=== PATIENT | male | born 1965 | race Caucasian/White ===

== ENCOUNTER 2016-07-05 13:38 | Emergency (ER) | payer MEDICARE, OTHER, SELFPAY ==
[~2016-07-05] VITALS: Ht 180.3 cm; Wt 127.0 kg
[2016-07-05] MEDS ORDERED: AMIT50TA (13:51)
[2016-07-05] MEDS ORDERED: BUSP10TA (13:51)
[2016-07-05] MEDS ORDERED: PROA1AER (13:51)
[2016-07-05] MEDS ORDERED: VICO5TAB16 (13:51)
[2016-07-05] MEDS ORDERED: ATOR1TAB18 (13:51)
[2016-07-05] MEDS ORDERED: LISI40TAB (13:51)
[2016-07-05] MEDS ORDERED: TYLE500T78 PO (13:54)
[2016-07-05 15:14] LABS: BASO % 0.3 % (0.0-1.0); EOS # 0.2 K/mm3 (0.0-0.50); LARGE UNSTAINED CELL # 0.1 K/mm3 (0.0-0.4); LARGE UNSTAINED CELL % 0.9 % (0.0-4.0); LYMPH # 1.7 K/mm3 (1.5-4.5); LYMPH % 13.9 % (24.0-44.0); MEAN CORPUSCULAR HGB CONC 33.2 g/dl (32.0-36.5); MEAN CORPUSCULAR VOLUME 90.5 fl (80.0-96.0); MONO # 0.6 K/mm3 (0.0-0.8); MONO % 4.8 % (0.0-5.0); NEUTROPHILS # 9.3 K/mm3 (1.8-7.7); PLATELET COUNT, AUTOMATED 334 k/mm3 (150-450); RED CELL DISTRIBUTION WIDTH 12.8 % (11.5-14.5); WHITE BLOOD COUNT 11.9 K/mm3 (4.0-10.0)
[2016-07-05 15:19] LABS: ANION GAP 8 MEQ/L (8-16); BLOOD UREA NITROGEN 10 MG/DL (7-18); CARBON DIOXIDE LEVEL 26 MEQ/L (21-32); CHLORIDE LEVEL 102 MEQ/L (98-107); CREATININE FOR GFR 0.79 MG/DL (0.70-1.30); GLOMERULAR FILTRATION RATE > 60.0 (>56); GLUCOSE, FASTING 96 MG/DL (70-105); POTASSIUM SERUM 4.3 MEQ/L (3.5-5.1); SODIUM LEVEL 136 MEQ/L (136-145)
[2016-07-05] MEDS ORDERED: amLODIPine 5 MG TAB PO ONE (16:45)
[2016-07-05] MEDS ORDERED: ALBUTEROL SULFATE 2.5 MG/0.5 ML INH NEB SOLN NEB ONE (16:45)
--- NOTE | 2016-07-05 16:57 | REP ---
Noncontrast brain CT: History: Dizziness and blurred vision. Comparison brain CT study is from 12/25/2013. Findings: Bone window settings demonstrate an intact bony calvarium. There is a small amount of fluid with an air-fluid level in the apex of the left maxillary sinus. This finding was present in November 2013 as well. Visualized paranasal sinuses are otherwise clear. There is a 3 cm radiolucency in the floor the middle cranial fossa on the left consistent with a small subarachnoid cyst. This is unchanged from the prior study. There is mild diffuse cerebral atrophy as before. There is no evidence of intracranial hemorrhage. No infarct, mass, extra-axial fluid collection or midline shift is seen. [place] white differentiation pattern is intact. Impression: Stable 3 cm subarachnoid cyst in the floor of the left middle cranial fossa. Minimal diffuse atrophy. Otherwise negative. Signed by Ebenezer Hwang MD 07/05/2016 06:02 P
[2016-07-05 17:30] VITALS: BP 142/79
[2016-07-05] MEDS ORDERED: NIFEdipine 10 MG CAP PO ONE (18:30)
--- NOTE | 2016-07-05 18:56 | REP ---
Chest x-ray: Two views: History: Wheezing. Findings: A dorsal column stimulator is seen in the mid thoracic spine as before. The patient is status post ventral discectomy and fusion in the lower cervical spine. EKG monitoring electrodes overlie the chest. The lungs are well inflated and clear. Heart size is normal. Pulmonary vasculature is not increased. No significant bony abnormality is seen. Impression: No active disease. Signed by Ebenezer Hwang MD 07/05/2016 08:46 P
[2016-07-05 19:44] LABS: METHADONE URINE NEGATIVE (NEGATIVE)
[2016-07-05] MEDS ORDERED: AMLO25TA PO (20:47)
[2016-07-05] MEDS ORDERED: traMADol 50 MG TAB PO ONE (21:00)
[2016-07-05 21:29] VITALS: BP 150/87
== END 2016-07-05 21:30 | disposition home or self-care (01) ==
LOC: M ED 14:45
DX: R55 Syncope and collapse (principal); I10 Essential (primary) hypertension; R06.02 Shortness of breath; F17.210 Nicotine dependence, cigarettes, uncomplicated; Z79.899 Other long term (current) drug therapy

== ENCOUNTER → 2017-08-20 | Outpatient (REF) | payer MEDICARE, OTHER, MEDICAID ==
[2017-08-23 00:06] LABS: AMPHETAMINE SCREEN, URINE Negative ng/mL (Cutoff=1000); BARBITURATES SCREEN, URINE Negative ng/mL (Cutoff=200); BENZODIAZEPINES, URINE SCREEN Negative ng/mL (Cutoff=200); CANNABINOID SCREEN, URINE Negative ng/mL (Cutoff=20); COCAINE SCREEN, URINE Negative ng/mL (Cutoff=300); CREATININE, URINE 65.4 mg/dL (20.0-300.0); FENTANYL URINE SCREEN Negative pg/mL (Cutoff=2000); METHADONE, URINE SCREEN Negative ng/mL (Cutoff=300); OPIATE SCREEN, URINE Negative ng/mL (Cutoff=300); OXYCODONE, SCREEN, URINE Negative ng/mL (Cutoff=100); PCP SCREEN, URINE Negative ng/mL (Cutoff=25); SPECIFIC GRAVITY, URINE 1.008 (.); pH, URINE 5.4 (4.5-8.9)
== END ==
LOC: M SFHCPLAZ 15:49
DX: Z51.81 Encounter for therapeutic drug level monitoring (principal); Z79.891 Long term (current) use of opiate analgesic
CPT/HCPCS: 80307

== ENCOUNTER → 2018-02-12 | Outpatient (CLI) | payer OTHER, MEDICARE, MEDICAID ==
[~2018-02-12] MED LIST: AMIT50TA; AMLO25TA PO; ATOR80TA59; BUSP10TA; LISI40TA; PROAAER10; TYLE500T78 PO; VICO5TAB16
--- NOTE | 2018-02-12 11:52 | REP ---
CT CERVICAL SPINE WITHOUT CONTRAST: HISTORY: Radiculopathy. COMPARISON: 12/26/2011. The patient is status post C6-7 anterior spinal fusion. A fixation plate and bone graft material are present. Disc bulges are present at the C3-4 through C5-6 levels. There is minimal narrowing of the spinal canal. Uncinate process and/or facet hypertrophy are present at the C2-3 through C7-T1 levels. These findings produce minimal to moderate narrowing of the neural foramina. The C7-T1 intervertebral disc is decreased in height consistent with disc degeneration. There is no subluxation. IMPRESSION: 1. The patient is status post C6-7 anterior spinal fusion. There is anatomic alignment. 2. There is cervical spondylosis at the C2-3 through C7-T1 levels. The postoperative change is a new finding. Electronically Signed by Clifton Nobles MD 02/12/2018 12:09 P
--- NOTE | 2018-02-12 12:19 | REP ---
CT LUMBAR SPINE WITHOUT CONTRAST: HISTORY: Radiculopathy. COMPARISON: MR 04/22/2012. A diffuse disc bulge is present at the L1-2 level. The previously noted small disc protrusion is not seen. There is minimal compression of the thecal sac. The L1 nerves exit the neural foramina without compression. A diffuse disc bulge is present at the L2-3 level. There is minimal compression of the thecal sac. The L2 nerves exit the neural foramina without compression. A diffuse disc bulge is present at the L3-4 level. There is minimal compression of the thecal sac. There is hypertrophy of the posterior articulating facets. There is compression of the left L3 nerve in the neural foramen. The right L3 nerve exits the neural foramen without compression. A diffuse disc bulge is present at the L4-5 level. There is minimal compression of the thecal sac. There is hypertrophy of the posterior articulating facets. There is compression of the L4 nerves in the neural foramina. A diffuse disc bulge and small left paracentral disc protrusion are present at the L5-S1 level. There is minimal compression of the thecal sac and left S1 nerve as it exits the thecal sac. There is hypertrophy of the posterior articulating facets. There is compression of the left L5 nerve in the neural foramen. The right L5 nerve exits the neural foramen without compression. The lumbar intervertebral discs are decreased in height. Vacuum phenomenon is present at the L5-S1 level. These findings are consistent with disc degeneration. There is no subluxation. IMPRESSION: 1. Diffuse disc bulges at the L1-2 through L4-5 levels with minimal thecal sac compression. There is compression of the L4 and left L3 nerves in the neural foramina. The previously noted disc protrusion at the L1-2 level is not seen. 2. Diffuse disc bulge and small left paracentral disc protrusion at the L5-S1 level with minimal compression of the thecal sac and left S1 nerve as it exits the thecal sac. There is compression of the left L5 nerve in the neural foramen. There is no other significant change. Electronically Signed by Clifton Nobles MD 02/12/2018 12:27 P
== END ==
LOC: M RAD 10:31
PROVIDERS: ATTEND Nurse Practitioner Family
DX: M50.20 Other cervical disc displacement, unspecified cervical region (principal); M51.26 Other intervertebral disc displacement, lumbar region; M51.27 Other intervertebral disc displacement, lumbosacral region; M54.16 Radiculopathy, lumbar region; M54.12 Radiculopathy, cervical region; Z98.1 Arthrodesis status

== ENCOUNTER 2018-08-21 07:05 | Emergency (ER) | payer MEDICARE, MEDICAID ==
[~2018-08-21] VITALS: Ht 182.9 cm; Wt 118.2 kg
[~2018-08-21 07:05] MED LIST changes: -VICO5TAB16; +VICO5TAB17
[2018-08-21 07:40] LABS: BASO % 0.4 % (0.0-1.0); EOS # 0.2 10^3/uL (0.0-0.50); EOS % 2.1 % (0.0-3.0); HEMATOCRIT 46.1 % (42.0-52.0); HEMOGLOBIN 15.4 g/dl (13.5-17.5); LYMPH # 2.4 10^3/uL (1.5-4.5); LYMPH % 26.6 % (24.0-44.0); MEAN CORPUSCULAR HEMOGLOBIN 30.6 pg (27.0-33.0); MEAN CORPUSCULAR HGB CONC 33.4 g/dl (32.0-36.5); MEAN CORPUSCULAR VOLUME 91.7 fl (80.0-96.0); MONO # 0.9 10^3/uL (0.0-0.8); MONO % 10.1 % (0.0-5.0); NEUTROPHILS # 5.4 10^3/uL (1.8-7.7); NEUTROPHILS % 59.9 % (36.0-66.0); PLATELET COUNT, AUTOMATED 329 10^3/uL (150-450); RED BLOOD COUNT 5.03 10^6/uL (4.30-6.10)
[2018-08-21] MEDS ORDERED: KETOROLAC 30 MG/ML VIAL (J1885) IV ONE (07:45)
[2018-08-21 07:50] LABS: INR 0.97; PROTHROMBIN TIME 12.6 SECONDS (11.8-14.0)
--- NOTE | 2018-08-21 07:50 | REP ---
Clinical: Acute chest pain . Comparison: 07/05/2016 . Findings: The mediastinum and cardiac silhouette are stable and within normal limits for portable technique. The lung garcia are clear without acute consolidation, effusion, or pneumothorax. Skeletal structures are intact. Impression: No acute cardiopulmonary process appreciated. Electronically Signed by Armen Hernandez MD 08/21/2018 07:42 A
[2018-08-21 08:11] LABS: ALBUMIN 4.1 GM/DL (3.2-5.2); ALT/SGPT 22 U/L (12-78); BILIRUBIN,DIRECT < 0.1 MG/DL (0.0-0.2); BILIRUBIN,TOTAL 0.2 MG/DL (0.2-1.0); BLOOD UREA NITROGEN 10 MG/DL (7-18); CALCIUM LEVEL 8.9 MG/DL (8.5-10.1); CARBON DIOXIDE LEVEL 19 MEQ/L (21-32); CHLORIDE LEVEL 110 MEQ/L (98-107); CK-MB VALUE MASS < 1.0 NG/ML (<3.6); CPK CREATINE PHOSPHOKINASE 71 U/L (39-308); CREATININE FOR GFR 1.05 MG/DL (0.70-1.30); GLOMERULAR FILTRATION RATE > 60.0 (>56); GLUCOSE, FASTING 93 MG/DL (70-100); LIPASE 146 U/L (73-393); MB/CK RELATIVE INDEX 1.41 (< OR =4); NT-PRO BNP 11 PG/ML (<125); POTASSIUM SERUM 4.2 MEQ/L (3.5-5.1); SODIUM LEVEL 138 MEQ/L (136-145); TOTAL PROTEIN 7.8 GM/DL (6.4-8.2); TROPONIN I < 0.02 NG/ML (< 0.10)
[2018-08-21] MEDS ORDERED: ISOVUE-370 76% 100ML VIAL (Q9967) As Ordered ONE (08:45)
[2018-08-21] MEDS ORDERED: GABAPENTIN 300 MG CAP PO ONE (09:00)
--- NOTE | 2018-08-21 09:27 | REP ---
Clinical: Right upper extremity pain and swelling. Technique: Real time garner scale and color Doppler ultrasound examination using linear high frequency transducer. Findings: Ultrasound examination of the right upper extremity including jugular, subclavian, axillary, basilic, brachial, and cephalic veins demonstrate normal flow characteristics without evidence for deep venous thrombosis. Impression: Negative examination. No DVT. Electronically Signed by Armen Hernandez MD 08/21/2018 09:17 A
--- NOTE | 2018-08-21 11:03 | REP ---
CT of the chest with IV contrast, CT pulmonary angiography protocol: Comparison is 12/26/2011. There are no emboli in the pulmonary trunk or central pulmonary arteries: There are no emboli in the pulmonary lobe or segment branches. There are no infiltrates. There are no pleural effusions. There are no masses or nodules. The thoracic aorta is unremarkable. Cardiac size is normal. There is no pericardial effusion. The visualized upper abdominal contents are unremarkable. There is a spinal stimulator at the mid thoracic level. Impression: There are no pulmonary emboli. Spinal stimulator. Otherwise, negative chest CT. Electronically Signed by Valeriy Salinas MD 08/21/2018 10:54 A
[2018-08-21] MEDS ORDERED: NEUR300C PO (12:21)
[2018-08-21 12:41] VITALS: BP 138/96
--- NOTE | 2018-08-21 20:03 | ECGEPIP ---
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
== END 2018-08-21 12:53 | disposition home or self-care (01) ==
LOC: M ED 07:05
DX: R07.9 Chest pain, unspecified (principal); M79.601 Pain in right arm; R20.2 Paresthesia of skin; I10 Essential (primary) hypertension; J44.9 Chronic obstructive pulmonary disease, unspecified; E78.5 Hyperlipidemia, unspecified; F41.9 Anxiety disorder, unspecified; G89.29 Other chronic pain; Z79.899 Other long term (current) drug therapy; F17.210 Nicotine dependence, cigarettes, uncomplicated
CPT/HCPCS: 71045; 71275; 80048; 80076; 82550; 82553; 83690; 83880; 84443; 84484; 85025; 85379; 85610; 93005; 93041; 93971; 94760; 96374; 99285; J1885; Q9967

== ENCOUNTER → 2018-09-04 | Outpatient (CLI) | payer MEDICARE, MEDICAID ==
[~2018-09-04] MED LIST changes: +NEUR300C PO
--- NOTE | 2018-09-04 16:58 | REP ---
CT cervical spine without contrast: History: Cervical radiculopathy. Comparison study 02/12/2018. Technique: Helical scanning is acquired and 2 mm axial images are reformatted. Coronal and sagittal MPR images are generated and reviewed. CT findings: The patient is status post anterior cervical discectomy and fusion of the C6-7 disc. There is straightening of the normal cervical lordosis. Alignment is otherwise normal. There is good bony fusion C6-7 disc. Abutting osteophytes are noted as before at C5-6 anteriorly. Discogenic spurring is seen anteriorly at C4-5 and to a slight degree of C3-4 as well. There is osteoarthritis at the articulation between the dens and the anterior arch of C1 unchanged. There is fairly advanced osteoarthritic facet disease at C2-3, C3-4, C4-5 and C5-6 bilaterally but much worse on the right than the left. The most extensive sclerosis and hypertrophy is noted affecting the right C3-4 facet joint. This facet osteoarthritis appears a bit more prominent today. At the C2-3 disc level minimal central disc bulging is present. At C3-4, axial and sagittal images demonstrate significant neural foraminal narrowing on the right due to uncovertebral spurring and facet hypertrophy. There is minimal facet spurring on the left. Mild diffuse disc bulging is seen. At C4-5, there is mild uncovertebral spurring bilaterally but neural foramina appear adequate. Left is a little more narrow than right. At C5-6, no neural foraminal narrowing is seen. No disc protrusion is noted. At the C6-7 level, the disc is fused. No thecal sac compression is appreciated. At C7-T1, there is no significant finding. Impression: Advanced osteoarthritic facet disease most pronounced on the right at C3-4 with some progression since the January 2018 prior study. There is bilateral neural foraminal narrowing at C3-4 right greater than left. Mild uncovertebral spurring is seen at 4-5 unchanged. The patient is status post discectomy and fusion plating at C6-7. Electronically Signed by Ebenezer Hwang MD 09/04/2018 05:15 P
== END ==
LOC: M RAD 15:21
PROVIDERS: ATTEND Nurse Practitioner Family
DX: Z98.1 Arthrodesis status (principal); M25.78 Osteophyte, vertebrae; M50.31 Other cervical disc degeneration, high cervical region

== ENCOUNTER → 2019-07-02 | Outpatient (CLI) | payer MEDICARE, MEDICAID ==
--- NOTE | 2019-07-02 12:13 | REP ---
RIGHT KNEE: Five views. HISTORY: Right knee injury. Pain. FINDINGS: Five views of the right knee demonstrate normal bones, joints, and soft tissues. No fracture, subluxation, or joint effusion is evident. IMPRESSION: Negative radiographs of the right knee. Electronically Signed by Ebenezer Hwang MD 07/02/2019 01:30 P
--- NOTE | 2019-07-02 12:14 | REP ---
RIGHT FOREARM: Two views. HISTORY: Injury. Pain. FINDINGS: AP and lateral views of the right forearm demonstrate soft-tissue swelling dorsally over the proximal ulna. There is olecranon process spurring and there is medial and lateral epicondylar spurring. There is no evidence of fracture or acute bony abnormality. IMPRESSION: No fracture seen. Spurring noted at the elbow. Soft tissue swelling. Electronically Signed by Ebenezer Hwang MD 07/02/2019 01:30 P
== END ==
LOC: M WUC 11:21
PROVIDERS: ATTEND Physician Assistant
DX: S50.11XA Contusion of right forearm, initial encounter (principal); S80.01XA Contusion of right knee, initial encounter; X58.XXXA Exposure to other specified factors, initial encounter; Y92.89 Other specified places as the place of occurrence of the external cause; Y93.9 Activity, unspecified; Y99.9 Unspecified external cause status

== ENCOUNTER 2019-09-11 10:37 | Emergency (ER) | payer MEDICARE, MEDICAID ==
[2019-09-11 11:38] LABS: VENOUS BASE EXCESS -2.1 (-2.0-2.0); VENOUS HCO3 22.6 MEQ/L (23.0-27.0); VENOUS O2 SATURATION 98.6 % (60.0-80.0); VENOUS PARTIAL PRESSURE CO2 38.7 mmHg (38.0-50.0); VENOUS PARTIAL PRESSURE O2 138.4 mmHg (30.0-50.0); VENOUS PH 7.384 UNITS (7.330-7.430); VENOUS STANDARD HCO3 22.7 MEQ/L; VENOUS TOTAL CO2 23.8 MEQ/L (24.0-28.0)
[2019-09-11 11:45] LABS: BASO % 0.3 % (0.0-1.0); EOS # 0.1 10^3/uL (0.0-0.5); EOS % 1.4 % (0.0-3.0); HEMATOCRIT 43.4 % (42.0-52.0); HEMOGLOBIN 14.5 g/dl (13.5-17.5); LYMPH # 2.5 10^3/uL (1.5-5.0); LYMPH % 26.1 % (24.0-44.0); MEAN CORPUSCULAR HEMOGLOBIN 29.8 pg (27.0-33.0); MEAN CORPUSCULAR HGB CONC 33.4 g/dl (32.0-36.5); MEAN CORPUSCULAR VOLUME 89.1 fl (80.0-96.0); MONO # 0.8 10^3/uL (0.0-0.8); MONO % 8.2 % (0.0-5.0); NEUTROPHILS # 6.1 10^3/uL (1.5-8.5); NEUTROPHILS % 63.5 % (36.0-66.0); PLATELET COUNT, AUTOMATED 341 10^3/uL (150-450); RED BLOOD COUNT 4.87 10^6/uL (4.30-6.10); WHITE BLOOD COUNT 9.7 10^3/uL (4.0-10.0)
[2019-09-11] MEDS ORDERED: ALTEPLASE RECOMBINANT 81 MG in IV 1 EA IV ONE (11:45)
[2019-09-11] MEDS ORDERED: ALTEPLASE 100MG VIAL IV ONE (11:45)
[2019-09-11] MEDS ORDERED: ISOVUE-370 76% 100ML VIAL As Ordered ONE (11:48)
--- NOTE | 2019-09-11 11:48 | REP ---
REASON: Altered mental status. COMPARISON: 07/05/2016 There is no significant change from the prior examination. No acute intracranial hemorrhagic or nonhemorrhagic event has developed. There is no shift of the midline structures. There are no extra-axial fluid collections. The left middle cranial fossa arachnoid cyst is unchanged. There is no change in the deep cerebral white matter. There is no change in the posterior fossa. The imaged paranasal sinuses again show chronic left maxillary sinus changes, status quo. IMPRESSION: No significant change from the prior exam with findings as described above. There is no evidence of acute disease. Electronically Signed by Byron Crum DO 09/11/2019 04:59 P
[2019-09-11 12:18] LABS: ALBUMIN 4.1 GM/DL (3.2-5.2); ALT/SGPT 28 U/L (12-78); BILIRUBIN,DIRECT 0.1 MG/DL (0.0-0.2); BILIRUBIN,TOTAL 0.4 MG/DL (0.2-1.0); BLOOD UREA NITROGEN 15 MG/DL (7-18); CALCIUM LEVEL 8.9 MG/DL (8.5-10.1); CARBON DIOXIDE LEVEL 25 MEQ/L (21-32); CHLORIDE LEVEL 106 MEQ/L (98-107); CREATININE FOR GFR 0.76 MG/DL (0.70-1.30); GLOMERULAR FILTRATION RATE > 60.0 (>56); GLUCOSE, FASTING 112 MG/DL (70-100); POTASSIUM SERUM 4.2 MEQ/L (3.5-5.1); SODIUM LEVEL 138 MEQ/L (136-145); TOTAL PROTEIN 7.2 GM/DL (6.4-8.2)
[2019-09-11] MEDS ORDERED: GABA600T4 (12:42)
[2019-09-11] MEDS ORDERED: SODIUM CHLORIDE 0.9% 50 ML IV ONE (12:45)
--- NOTE | 2019-09-11 12:48 | REPVR ---
PROCEDURE INFORMATION: Exam: CT Angiography Head With Contrast Exam date and time: 09/11/2019 11:45 AM Age: 53 years old Clinical indication: Vertigo TECHNIQUE: Imaging protocol: Computed tomography angiography of the head with intravenous contrast. 3D rendering: MIP and/or 3D reconstructed images were created by the technologist. Radiation optimization: All CT scans at this facility use at least one of these dose optimization techniques: automated exposure control; mA and/or kV adjustment per patient size (includes targeted exams where dose is matched to clinical indication); or iterative reconstruction. Contrast material: ISOVUE 370; Contrast volume: 100 ml; Contrast route: INTRAVENOUS (IV); COMPARISON: CT Head without contrast 09/11/2019 10:56 AM FINDINGS: Anterior cerebral arteries: No occlusion or significant stenosis. No aneurysm. Right internal carotid artery: Intracranial segment is patent with no significant stenosis or occlusion. No aneurysm. Right middle cerebral artery: No occlusion or significant stenosis. No aneurysm. Right posterior cerebral artery: No occlusion or significant stenosis. No aneurysm. Right vertebral artery: No occlusion or significant stenosis. No aneurysm. Left internal carotid artery: Intracranial segment is patent with no significant stenosis or occlusion. No aneurysm. Left middle cerebral artery: No occlusion or significant stenosis. No aneurysm. Left posterior cerebral artery: No occlusion or significant stenosis. No aneurysm. Left vertebral artery: No occlusion or significant stenosis. No aneurysm. Basilar artery: No occlusion or significant stenosis. No aneurysm. IMPRESSION: No large vessel stenosis or occlusion. Electronically signed by: Natalie Edmondson On 09/11/2019 12:48:36 PM
--- NOTE | 2019-09-11 12:52 | REPVR ---
PROCEDURE INFORMATION: Exam: CT Angiography Neck With Contrast Exam date and time: 09/11/2019 11:45 AM Age: 53 years old Clinical indication: Vertigo TECHNIQUE: Imaging protocol: Computed tomography angiography of the neck with intravenous contrast. 3D rendering: MIP and/or 3D reconstructed images were created by the technologist. Radiation optimization: All CT scans at this facility use at least one of these dose optimization techniques: automated exposure control; mA and/or kV adjustment per patient size (includes targeted exams where dose is matched to clinical indication); or iterative reconstruction. Contrast material: ISOVUE 370; Contrast volume: 100 ml; Contrast route: INTRAVENOUS (IV); COMPARISON: CT Spine,cervical w/o contrast 09/04/2018 3:30 PM FINDINGS: Right common carotid artery: No stenosis. No dissection or occlusion. Right internal carotid artery: There are coarse calcific atherosclerotic changes of the right carotid bulb. There is no significant stenosis. Right external carotid artery: No occlusion or stenosis of the origin. Right vertebral artery: No stenosis. No dissection or occlusion. Left common carotid artery: No stenosis. No dissection or occlusion. Left internal carotid artery: There are coarse calcific atherosclerotic changes of the left carotid bulb and proximal internal carotid artery. There is 60% stenosis of the left proximal internal carotid artery. Left external carotid artery: No occlusion or stenosis of the origin. Left vertebral artery: No stenosis. No dissection or occlusion. Bones/joints: Ventral fixation plate and screws are noted at C6 and C7. There is straightening of the normal cervical lordosis. There is no fracture or listhesis. Soft tissues: Normal. No significant soft tissue swelling. IMPRESSION: 60% stenosis of the left proximal internal carotid artery. REFERENCES: NASCET CRITERIA. The degree of internal carotid artery stenosis is based on NASCET criteria. Normal is no stenosis. Mild is less than 50% stenosis. Moderate is 50-69% stenosis. Severe is 70% to 99% stenosis. Total occlusion is no detectable patent lumen. Electronically signed by: Natalie Edmondson On 09/11/2019 12:52:48 PM
[2019-09-11 13:01] VITALS: BP 120/61
--- NOTE | 2019-09-12 09:26 | ECGEPIP ---
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
== END 2019-09-11 13:05 | disposition short-term general hospital (02) ==
LOC: M ED 10:37
DX: R42 Dizziness and giddiness (principal); I65.22 Occlusion and stenosis of left carotid artery; I45.89 Other specified conduction disorders; I10 Essential (primary) hypertension; Z72.0 Tobacco use
CPT/HCPCS: 70450; 70496; 70498; 80047; 80048; 80076; 82140; 82803; 84443; 84484; 85025; 93005; 93041; 96365; 96375; 99285; J2997; Q9967

== ENCOUNTER 2020-05-25 18:44 | Emergency (ER) | payer MEDICARE, MEDICAID ==
[~2020-05-25] VITALS: Ht 182.9 cm; Wt 124.2 kg
[~2020-05-25 18:44] MED LIST changes: +GABA600T4; -LISI40TA; +LISI40TA4
[2020-05-25] MEDS ORDERED: IBUP80TA (18:54)
[2020-05-25] MEDS ORDERED: BACL10TA2 (18:54)
[2020-05-25] MEDS ORDERED: HYDR-3719 (18:54)
[2020-05-25] MEDS ORDERED: NS 1,000 ML IV ONE (19:45)
[2020-05-25] MEDS ORDERED: MORPHINE 4 MG/ML 1ML VIAL/SYRINGE (J2270) IV ONE (19:45)
[2020-05-25 21:30] LABS: BASO # 0.1 10^3/uL (0.0-0.2); BASO % 0.6 % (0.0-1.0); EOS # 0.2 10^3/uL (0.0-0.5); EOS % 1.9 % (0.0-3.0); HEMATOCRIT 44.9 % (42.0-52.0); HEMOGLOBIN 14.8 g/dl (13.5-17.5); LYMPH % 34.5 % (24.0-44.0); MEAN CORPUSCULAR VOLUME 90.9 fl (80.0-96.0); MONO % 8.4 % (2.0-8.0); NEUTROPHILS # 6.2 10^3/uL (1.5-8.5); PLATELET COUNT, AUTOMATED 315 10^3/uL (150-450); RED BLOOD COUNT 4.94 10^6/uL (4.30-6.10); WHITE BLOOD COUNT 11.5 10^3/uL (4.0-10.0)
[2020-05-25 21:41] LABS: INR 0.91; PROTHROMBIN TIME 12.4 SECONDS (12.5-14.3)
[2020-05-25 21:42] LABS: PARTIAL THROMBOPLASTIN TIME 29.8 SECONDS (24.2-38.5)
[2020-05-25] MEDS ORDERED: ISOVUE-370 76% 100ML VIAL As Ordered ONE (21:54)
[2020-05-25 21:58] LABS: ALBUMIN 4.3 GM/DL (3.2-5.2); ALT/SGPT 23 U/L (12-78); BILIRUBIN,DIRECT < 0.1 MG/DL (0.0-0.2); BILIRUBIN,TOTAL 0.2 MG/DL (0.2-1.0); CPK CREATINE PHOSPHOKINASE 214 U/L (39-308); LIPASE 100 U/L (73-393); MB/CK RELATIVE INDEX 0.93 (< OR =4); TOTAL PROTEIN 7.4 GM/DL (6.4-8.2); TROPONIN I < 0.02 NG/ML (< 0.10)
--- NOTE | 2020-05-25 22:45 | REPVR ---
PROCEDURE INFORMATION: Exam: CT Angiography Abdomen and Pelvis With Contrast Exam date and time: 05/25/2020 10:03 PM Age: 54 years old Clinical indication: Abdominal pain; Flank; Left lower quadrant (llq); Additional info: Chest/back/abd pain TECHNIQUE: Imaging protocol: Computed tomographic angiography of the abdomen and pelvis with contrast material. 3D rendering (Not supervised by radiologist): MIP and/or 3D reconstructed images were created by the technologist. Radiation optimization: All CT scans at this facility use at least one of these dose optimization techniques: automated exposure control; mA and/or kV adjustment per patient size (includes targeted exams where dose is matched to clinical indication); or iterative reconstruction. Contrast material: ISOVUE 370; Contrast volume: 100 ml; Contrast route: INTRAVENOUS (IV); COMPARISON: CT ABD PELVIS WITH CONTRAST 06/30/2014 6:54 PM FINDINGS: Aorta: The abdominal aorta is of normal size without aneurysm or dissection. Celiac trunk and mesenteric arteries: The celiac artery and branches appear normal. The SMA and visualized branches appear normal. Renal arteries: There are single patent bilateral renal arteries. Right iliac arteries: No occlusion or significant stenosis. Left iliac arteries: No occlusion or significant stenosis. Liver: No mass. Gallbladder and bile ducts: The gallbladder is somewhat contracted with no stones. Pancreas: Unremarkable. No mass. No ductal dilation. Spleen: Unremarkable. No splenomegaly. Adrenal glands: Unremarkable. No mass. Kidneys and ureters: No hydronephrosis. No ureteral calculi. Stomach and bowel: Minimal colonic diverticulosis without diverticulitis. Appendix: A normal appendix is seen. Intraperitoneal space: Unremarkable. No free air. No significant fluid collection. Lymph nodes: Unremarkable. No enlarged lymph nodes. Urinary bladder: Unremarkable. No mass. Reproductive: Unremarkable as visualized. Bones/joints: Epidural electrodes in the lower thoracic spine. Anterior wedge configuration of T11 and T12 and slightly decreased height of T10 which appear to be chronic. Soft tissues: Unremarkable. IMPRESSION: 1. Minimal colonic diverticulosis without diverticulitis. 2. Otherwise negative CTA abdomen/pelvis. No abdominal aortic aneurysm or dissection. No renal or ureteral calculi are evident and there is no evidence of obstructive uropathy. Electronically signed by: Ozzie Goddard On 05/25/2020 22:45:29 PM
--- NOTE | 2020-05-25 22:48 | REPVR ---
PROCEDURE INFORMATION: Exam: CT Angiography Chest With Contrast Exam date and time: 05/25/2020 10:03 PM Age: 54 years old Clinical indication: Chest pain; Additional info: Chest/back/abd pain TECHNIQUE: Imaging protocol: Computed tomographic angiography of the chest with contrast. 3D rendering (Not supervised by radiologist): MIP and/or 3D reconstructed images were created by the technologist. Radiation optimization: All CT scans at this facility use at least one of these dose optimization techniques: automated exposure control; mA and/or kV adjustment per patient size (includes targeted exams where dose is matched to clinical indication); or iterative reconstruction. Contrast material: ISOVUE 370; Contrast volume: 100 ml; Contrast route: INTRAVENOUS (IV); COMPARISON: CT ANGIO CHEST 08/21/2018 9:47 AM FINDINGS: Tubes, catheters and devices: Mid thoracic epidural electrodes are noted. Pulmonary arteries: The main pulmonary artery measures 29 mm. No pulmonary embolism is identified. Aorta: The ascending thoracic aorta measures 31 mm. Other arteries: The left vertebral artery originates directly from the arch. Lungs: Minimal dependent atelectasis in the right lower lobe. No focal infiltrates. Pleural spaces: Unremarkable. No pneumothorax. No pleural effusion. Heart: Unremarkable. No cardiomegaly. No pericardial effusion. Lymph nodes: Unremarkable. No enlarged lymph nodes. Bones/joints: Anterior fusion of the lower cervical spine. Soft tissues: Unremarkable. IMPRESSION: 1. Mid thoracic epidural electrodes. 2. Otherwise negative CTA chest. No pulmonary embolism is identified. Electronically signed by: Ozzie Goddard On 05/25/2020 22:48:36 PM
[2020-05-25] MEDS ORDERED: KETOROLAC 30 MG/ML 1ML VIAL IV ONE (23:15)
[2020-05-25] MEDS ORDERED: GI COCKTAIL 50ML BTL(HYOSCYAMINE/MAALOX/LIDOCAINE VISCOUS)(1:3:1) PO ONE (23:20)
[2020-05-26 00:30] VITALS: BP 164/89
--- NOTE | 2020-05-27 06:23 | ECGEPIP ---
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
== END 2020-05-26 00:37 | disposition home or self-care (01) ==
LOC: M ED 18:44
DX: R10.84 Generalized abdominal pain (principal); I10 Essential (primary) hypertension; K21.9 Gastro-esophageal reflux disease without esophagitis; G89.29 Other chronic pain; M54.2 Cervicalgia; Z79.1 Long term (current) use of non-steroidal anti-inflammatories (NSAID); Z79.51 Long term (current) use of inhaled steroids; Z79.899 Other long term (current) drug therapy
CPT/HCPCS: 71275; 74174; 80047; 80076; 81001; 82550; 82553; 83605; 83690; 84484; 85025; 85610; 85730; 93005; 96361; 96374; 96375; 99284; J1885; J2270; Q9967

== ENCOUNTER → 2020-07-09 | Outpatient (CLI) | payer MEDICARE, MEDICAID ==
[~2020-07-09] MED LIST changes: +BACL10TA2; +HYDR-3719; +IBUP80TA
--- NOTE | 2020-07-11 09:43 | REP ---
INDICATION: LUMBAR RADICULOPATHY. COMPARISON: Comparison CT study is from February 12, 2018.. TECHNIQUE: Helical scanning is acquired and 4 mm axial images are generated. Coronal and sagittal MPR images are generated and reviewed. FINDINGS: Lumbar vertebral body heights are preserved. Alignment is normal. There is no evidence of spondylolysis or spondylolisthesis. There is diffuse degenerative disc disease throughout the visualized lower thoracic and lumbar spine. There are vacuum phenomena in degenerated discs at L2-3, L3-4, and L5-S1. The vacuum phenomena at L3-4 was not previously apparent. At T12-L1, there is mild diffuse disc bulging and some disc bulge associated calcification is seen. This is unchanged from the 2018 prior study. No evidence of spinal stenosis or foraminal narrowing. At L1-L2, there is diffuse disc bulging and posterior osteophytic ridging. The disc is somewhat narrowed. These findings are unchanged. There is mild central canal stenosis at L1-L2 due to disc bulging and developmentally short pedicles. no focal disc protrusion at L1-L2 is seen. No bony foraminal encroachment is appreciated. At L2-L3, the vacuum phenomena is more pronounced and there is a little more disc space narrowing than was present previously. There is reactive sclerosis and some subcortical cyst formation is seen in the right posterior aspect of the L2 vertebral body at the level of the disc. There is diffuse disc bulging and mild central canal stenosis at L2-3. No focal disc protrusion is seen. There appears to be foraminal segment disc bulging bilaterally. These findings are slightly more pronounced. At L3-4,, there is mild diffuse disc bulging and some discogenic spurring. There is mild central canal stenosis at L3-4. These findings are unchanged. Mild facet hypertrophy is present bilaterally. No bony foraminal encroachment. At L4-L5, there is also diffuse disc bulging and disc space narrowing unchanged from the comparison study. There is right-sided foraminal narrowing due to facet hypertrophy and disc bulging.a there is left-sided foraminal narrowing due to disc bulging and facet hypertrophy as well. The left-sided foraminal narrowing is more severe and this finding is unchanged. At L5-S1, there is degenerative disc narrowing with vacuum phenomena. There is broad-based left paracentral focal disc protrusion. There is bilateral neural foraminal narrowing due to disc bulging and associated spurring as well as facet hypertrophy. This is more prominent on the left than the right. These findings are unchanged. There is osteoarthritic facet hypertrophy bilaterally at L5-S1 as well. IMPRESSION: Diffuse degenerative disc disease. Multilevel osteoarthritic facet hypertrophy. Neural foraminal narrowing bilaterally as above at 4 5 and 5 1 unchanged. Left paracentral focal disc protrusion at L5-S1 unchanged. <Electronically signed by Sanjay Hwang > 07/11/20 [id number]
== END ==
LOC: M RAD 09:35
PROVIDERS: ATTEND Nurse Practitioner Family
DX: M54.16 Radiculopathy, lumbar region (principal)

== ENCOUNTER → 2020-08-14 | Outpatient (CLI) | payer MEDICARE, MEDICAID ==
[2020-08-14 08:52] LABS: HEMATOCRIT 42.6 % (42.0-52.0); HEMOGLOBIN 14.1 g/dl (13.5-17.5); MEAN CORPUSCULAR HEMOGLOBIN 29.8 pg (27.0-33.0); MEAN CORPUSCULAR HGB CONC 33.1 g/dl (32.0-36.5); MEAN CORPUSCULAR VOLUME 90.1 fl (80.0-96.0); PLATELET COUNT, AUTOMATED 282 10^3/uL (150-450); RED BLOOD COUNT 4.73 10^6/uL (4.30-6.10); WHITE BLOOD COUNT 7.9 10^3/uL (4.0-10.0)
[2020-08-14 09:28] LABS: ALBUMIN 3.8 GM/DL (3.2-5.2); ALT/SGPT 23 U/L (12-78); BILIRUBIN,TOTAL 0.4 MG/DL (0.2-1.0); BLOOD UREA NITROGEN 20 MG/DL (7-18); CALCIUM LEVEL 8.9 MG/DL (8.5-10.1); CARBON DIOXIDE LEVEL 28 MEQ/L (21-32); CHLORIDE LEVEL 108 MEQ/L (98-107); CHOLESTEROL LEVEL 167 MG/DL (<200); CHOLESTEROL RISK RATIO 3.976 (<5); CREATININE FOR GFR 0.86 MG/DL (0.70-1.30); GLOMERULAR FILTRATION RATE > 60.0 (>56); GLUCOSE, FASTING 85 MG/DL (70-100); HDL CHOLESTEROL 42 MG/DL (>40); LDL CHOLESTEROL 109 MG/DL (<100); NON-HDL-C 125 MG/DL; POTASSIUM SERUM 4.7 MEQ/L (3.5-5.1); PROSTATIC SPECIFIC AG MONITOR 1.41 NG/ML (< 4.00); SODIUM LEVEL 141 MEQ/L (136-145); TOTAL PROTEIN 6.9 GM/DL (6.4-8.2); TRIGLYCERIDES LEVEL 79 MG/DL (<150)
[2020-08-14 10:01] LABS: HEMOGLOBIN A1c 5.5 %
[2020-08-15 16:58] LABS: TESTOSTERONE 429 NG/DL (241-827)
== END ==
LOC: M LAB 08:20
PROVIDERS: ATTEND Family Medicine
DX: Z12.5 Encounter for screening for malignant neoplasm of prostate (principal); R53.83 Other fatigue; I10 Essential (primary) hypertension; E03.9 Hypothyroidism, unspecified; Z79.899 Other long term (current) drug therapy

== ENCOUNTER → 2020-09-01 | Outpatient (CLI) | payer MEDICARE, MEDICAID ==
[~2020-09-01] MED LIST changes: +E-Z-GAS II EFFERVESCENT PACKET (SODIUM BICARB./CITRIC ACID/SIMETHICONE) As Ordered ONE; +E-Z-HD 98% w/w 340GM SUSP BTL As Ordered ONE; +E-Z-PAQUE 96% w/w SUSP 176GM BTL As Ordered ONE
--- NOTE | 2020-09-02 11:16 | REP ---
INDICATION: ABD PAIN, PEPTIC ULCER. COMPARISON: None. TECHNIQUE: The procedure was performed under the direct supervision of Dr. Penn. The images were reviewed with Dr. Penn. Liquid barium and gas producing crystals were given in the erect position as well as liquid barium in the prone oblique position in order to perform a double contrast upper GI examination. A combination of fluoroscopy, spot films and last image hold technology was utilized. 0.8 minutes of fluoro time was utilized for this procedure. 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 The intestinal gas pattern is non-specific. There is a dorsal column stimulator power pack overlying the right pelvis. The oral and pharyngeal stages of deglutition are unremarkable. Esophageal transport is prompt and efficient and there is no esophagitis, stricture, mucosal ring or hiatal hernia. Within the stomach there are thickened folds which may represent gastritis. There is no gabriel ulcer identified the stomach is otherwise unremarkable. The duodenal wilson are normally outlined. The mucosal folds are smooth and regular. There is no duodenitis pancreatitis peptic ulcer disease or neoplasm. The visualized portion of the proximal small bowel appears normal in course and caliber. IMPRESSION: There are thickened folds in the stomach which may represent gastritis. There is no gabriel ulcer identified. Otherwise, unremarkable double contrast upper GI examination. <Electronically signed by Jaleel Mena > 09/01/20 1706 <Electronically signed by Valeriy Penn > 09/02/20 1112
== END ==
LOC: M RAD 08:09
PROVIDERS: ATTEND Family Medicine
DX: K27.9 Peptic ulcer, site unspecified, unspecified as acute or chronic, without hemorrhage or perforation (principal)

== ENCOUNTER → 2020-11-14 | Outpatient (CLI) | payer MEDICARE, MEDICAID ==
[~2020-11-14] MED LIST changes: -E-Z-GAS II EFFERVESCENT PACKET (SODIUM BICARB./CITRIC ACID/SIMETHICONE) As Ordered ONE; -E-Z-HD 98% w/w 340GM SUSP BTL As Ordered ONE; -E-Z-PAQUE 96% w/w SUSP 176GM BTL As Ordered ONE
--- NOTE | 2020-11-14 10:12 | REP ---
INDICATION: PNEUMONIA. COMPARISON: Portable chest, 08/21/2018. TECHNIQUE: PA and lateral chest images were obtained. FINDINGS: There is dense airspace consolidation in the lingula. There is a large left pleural effusion. The right lung is clear. There is cardiomegaly and aortic ectasia consistent with benign essential hypertension. There is an intrathecal stimulator centered at the midthoracic level. Status post anterior interbody fusion, C6-7. The upper abdominal bowel gas pattern is normal. There are no significant bony abnormalities identified. IMPRESSION: 1. Lingular pneumonia with a parapneumonic pleural effusion. 2. Findings consistent with hypertension. 3. Other findings as noted. <Electronically signed by Jose Moss > 11/14/20 [id number]
== END ==
LOC: M LAB 09:15 → M RAD 09:15
PROVIDERS: ATTEND Family Medicine
DX: J18.9 Pneumonia, unspecified organism (principal)

== ENCOUNTER → 2020-12-05 | Outpatient (CLI) | payer MEDICARE, MEDICAID ==
--- NOTE | 2020-12-05 09:41 | REP ---
INDICATION: PNUEMONIA FOLLOW-UP COMPARISON: 11/14/2020 TECHNIQUE: PA and lateral. FINDINGS: The mediastinum and cardiac silhouette are normal. The lung garcia are clear and without acute consolidation, effusion, or pneumothorax. The skeletal structures are intact and normal. Previous left lower lobe/lingular infiltrate has resolved. IMPRESSION: No acute cardiopulmonary process. <Electronically signed by Armen Hernandez > 12/05/20 0937
== END ==
LOC: M RAD 09:03
PROVIDERS: ATTEND Family Medicine
DX: J44.9 Chronic obstructive pulmonary disease, unspecified (principal)

== ENCOUNTER → 2021-07-11 | Outpatient (CLI) | payer MEDICARE ==
[2021-07-11 09:11] LABS: HEMATOCRIT 40.9 % (42.0-52.0); HEMOGLOBIN 13.5 g/dl (13.5-17.5); MEAN CORPUSCULAR HEMOGLOBIN 29.7 pg (27.0-33.0); MEAN CORPUSCULAR VOLUME 89.9 fl (80.0-96.0); PLATELET COUNT, AUTOMATED 267 10^3/uL (150-450); RED BLOOD COUNT 4.55 10^6/uL (4.30-6.10); WHITE BLOOD COUNT 6.2 10^3/uL (4.0-10.0)
[2021-07-11 09:32] LABS: ALBUMIN 3.7 GM/DL (3.2-5.2); ALT/SGPT 27 U/L (12-78); BILIRUBIN,TOTAL 0.3 MG/DL (0.2-1.0); BLOOD UREA NITROGEN 12 MG/DL (7-18); CALCIUM LEVEL 9.2 MG/DL (8.5-10.1); CARBON DIOXIDE LEVEL 28 MEQ/L (21-32); CHLORIDE LEVEL 108 MEQ/L (98-107); CHOLESTEROL LEVEL 219 MG/DL (<200); CREATININE FOR GFR 0.86 MG/DL (0.70-1.30); GLOMERULAR FILTRATION RATE > 60.0 (>56); GLUCOSE, FASTING 98 MG/DL (70-100); HDL CHOLESTEROL 50 MG/DL (>40); LDL CHOLESTEROL 155 MG/DL (<100); NON-HDL-C 169 MG/DL; POTASSIUM SERUM 4.6 MEQ/L (3.5-5.1); PROSTATIC SPECIFIC AG MONITOR 1.43 NG/ML (< 4.00); SODIUM LEVEL 140 MEQ/L (136-145); TOTAL PROTEIN 6.6 GM/DL (6.4-8.2); TRIGLYCERIDES LEVEL 70 MG/DL (<150)
[2021-07-11 09:33] LABS: TESTOSTERONE 374 NG/DL (241-827)
[2021-07-11 10:17] LABS: HEMOGLOBIN A1c 5.5 %
== END ==
LOC: M LAB 08:11
PROVIDERS: ATTEND Family Medicine
DX: I10 Essential (primary) hypertension (principal); R97.20 Elevated prostate specific antigen [PSA]

== ENCOUNTER → 2021-09-15 | Outpatient (CLI) | payer MEDICARE ==
[2021-09-15 10:16] LABS: HEMATOCRIT 42.2 % (42.0-52.0); HEMOGLOBIN 14.1 g/dl (13.5-17.5); MEAN CORPUSCULAR HEMOGLOBIN 30.2 pg (27.0-33.0); MEAN CORPUSCULAR HGB CONC 33.4 g/dl (32.0-36.5); MEAN CORPUSCULAR VOLUME 90.4 fl (80.0-96.0); PLATELET COUNT, AUTOMATED 275 10^3/uL (150-450); RED BLOOD COUNT 4.67 10^6/uL (4.30-6.10); WHITE BLOOD COUNT 12.1 10^3/uL (4.0-10.0)
[2021-09-15 11:36] LABS: ALBUMIN 3.9 GM/DL (3.2-5.2); ALT/SGPT 44 U/L (12-78); AMYLASE 39 U/L (25-115); BILIRUBIN,TOTAL 0.4 MG/DL (0.2-1.0); BLOOD UREA NITROGEN 11 MG/DL (7-18); CALCIUM LEVEL 9.2 MG/DL (8.5-10.1); CARBON DIOXIDE LEVEL 28 MEQ/L (21-32); CHLORIDE LEVEL 105 MEQ/L (98-107); CHOLESTEROL LEVEL 182 MG/DL (<200); CHOLESTEROL RISK RATIO 2.676 (<5); CREATININE FOR GFR 0.89 MG/DL (0.70-1.30); GLOMERULAR FILTRATION RATE > 60.0 (>56); GLUCOSE, FASTING 109 MG/DL (70-100); HDL CHOLESTEROL 68 MG/DL (>40); LDL CHOLESTEROL 97 MG/DL (<100); LIPASE 60 U/L (73-393); NON-HDL-C 114 MG/DL; POTASSIUM SERUM 4.4 MEQ/L (3.5-5.1); SODIUM LEVEL 138 MEQ/L (136-145); THYROID STIMULATING HORMONE 0.927 uIU/ML (0.358-3.740); TOTAL PROTEIN 6.8 GM/DL (6.4-8.2); TRIGLYCERIDES LEVEL 87 MG/DL (<150)
[2021-09-15 12:09] LABS: TESTOSTERONE 243 NG/DL (241-827)
[2021-09-15 13:39] LABS: HEMOGLOBIN A1c 5.8 %
== END ==
LOC: M PLALAB 08:01
PROVIDERS: ATTEND Family Medicine
DX: J44.9 Chronic obstructive pulmonary disease, unspecified (principal); I10 Essential (primary) hypertension; R53.83 Other fatigue; R52 Pain, unspecified

== ENCOUNTER → 2021-09-15 | Outpatient (CLI) | payer MEDICARE | LOC: M WHC 08:00 | PROVIDERS: ATTEND Family Medicine | DX: I51.7 Cardiomegaly (principal); R10.13 Epigastric pain; R19.00 Intra-abdominal and pelvic swelling, mass and lump, unspecified site; J44.9 Chronic obstructive pulmonary disease, unspecified; R53.83 Other fatigue; Z79.899 Other long term (current) drug therapy | CPT/HCPCS: 36415; 71046; 76705; 80053; 80061; 82150; 83036; 83690; 84403; 84443; 85027; G0103 ==

== ENCOUNTER → 2021-09-27 | Outpatient (CLI) | payer MEDICARE ==
[~2021-09-27] MED LIST changes: +ISOVUE-370 76% 100ML VIAL As Ordered ONE
== END ==
LOC: M RAD 17:02
PROVIDERS: ATTEND Family Medicine
DX: R10.13 Epigastric pain (principal); R19.05 Periumbilic swelling, mass or lump
CPT/HCPCS: 74177; Q9967

== ENCOUNTER 2021-10-22 09:38 | Inpatient (IN) | payer MEDICARE, MEDICAID ==
[~2021-10-22] VITALS: Ht 182.9 cm; Wt 124.6 kg
[~2021-10-22 09:38] MED LIST changes: -BACL10TA2; +BACL10TA2 PO; -GABA600T4; +GABA600T4 PO; -IBUP80TA; +IBUP80TA PO; -ISOVUE-370 76% 100ML VIAL As Ordered ONE; -LISI40TA4; +LISI40TA4 PO; -PROAAER10; +PROAAER10 INH
[2021-10-22] MEDS ORDERED: METOPROLOL TART 25 MG TABLET PO ONE ×2 (10:00→11:30)
[2021-10-22] MEDS: METOPROLOL 5 MG/5 ML VIAL IV SCH ×3 (10:16→10:56)
[2021-10-22 10:25] LABS: BASO % 0.4 % (0.0-1.0); EOS # 0.1 10^3/uL (0.0-0.5); EOS % 0.9 % (0.0-3.0); HEMATOCRIT 47.5 % (42.0-52.0); LYMPH % 18.9 % (24.0-44.0); MEAN CORPUSCULAR HEMOGLOBIN 29.7 pg (27.0-33.0); MEAN CORPUSCULAR HGB CONC 33.7 g/dl (32.0-36.5); MEAN CORPUSCULAR VOLUME 88.1 fl (80.0-96.0); MONO # 0.9 10^3/uL (0.0-0.8); MONO % 8.8 % (2.0-8.0); NEUTROPHILS # 7.2 10^3/uL (1.5-8.5); NEUTROPHILS % 70.3 % (36.0-66.0); PLATELET COUNT, AUTOMATED 295 10^3/uL (150-450); RED BLOOD COUNT 5.39 10^6/uL (4.30-6.10); WHITE BLOOD COUNT 10.3 10^3/uL (4.0-10.0)
[2021-10-22 10:58] LABS: RSV AMPLIFICATION NEGATIVE (NEGATIVE)
[2021-10-22 11:03] LABS: BLOOD UREA NITROGEN 18 MG/DL (7-18); CALCIUM LEVEL 9.9 MG/DL (8.5-10.1); CARBON DIOXIDE LEVEL 28 MEQ/L (21-32); CHLORIDE LEVEL 104 MEQ/L (98-107); FREE T4 0.84 NG/DL (0.76-1.46); GLOMERULAR FILTRATION RATE > 60.0 (>56); GLUCOSE, FASTING 109 MG/DL (70-100); MAGNESIUM LEVEL 1.9 MG/DL (1.8-2.4); POTASSIUM SERUM 3.6 MEQ/L (3.5-5.1); SODIUM LEVEL 139 MEQ/L (136-145)
[2021-10-22] MEDS ORDERED: AMIODARONE 200 MG TAB (PACERONE) PO ONE (13:30)
[2021-10-22] MEDS ORDERED: APIXABAN 5 MG TAB (ELIQUIS) PO ONE (13:30)
[2021-10-22] MEDS ORDERED: AMLO1TAB24 PO (14:34)
[2021-10-22] MEDS ORDERED: AMIT75TA67 PO (14:34)
[2021-10-22] MEDS ORDERED: LISI10TA22 PO (15:12)
[2021-10-22] MEDS ORDERED: SUCR1TAB56 PO (15:12)
[2021-10-22] MEDS ORDERED: PANT40TA29 PO (15:12)
[2021-10-22] MEDS ORDERED: ACET-683 PO (15:12)
[2021-10-22] MEDS ORDERED: POTA1TAB21 PO (15:12)
[2021-10-22] MEDS ORDERED: TORS100T PO (15:12)
[2021-10-22] MEDS ORDERED: HOME MED LIST COMPLETE! XX SCH (15:15)
[2021-10-22] MEDS ORDERED: ALBUTEROL 90 MCG/ACT 8GM HFA INHALER INH PRN (16:20)
[2021-10-22] MEDS: GABAPENTIN 300 MG CAP PO SCH ×2 (16:38→21:35)
[2021-10-22 18:01] LABS: ALBUMIN 3.8 GM/DL (3.2-5.2); ALT/SGPT 30 U/L (12-78); BILIRUBIN,DIRECT < 0.1 MG/DL (0.0-0.2); BILIRUBIN,TOTAL 0.4 MG/DL (0.2-1.0); TOTAL PROTEIN 7.6 GM/DL (6.4-8.2)
[2021-10-22] MEDS: METOPROLOL TART 50 MG TAB PO SCH (18:05)
[2021-10-22] MEDS ORDERED: REMDESIVIR 200 MG in NS 250 ML IV ONE (20:00)
[2021-10-22] MEDS ORDERED: AMIODARONE 100MG TABLET (PACERONE) PO SCH (21:00)
[2021-10-22] MEDS ORDERED: PILL CUTTER 1 EACH XX ONE (21:33)
[2021-10-22] MEDS: PANTOPRAZOLE 40MG TAB (PROTONIX) PO SCH (21:35)
[2021-10-22] MEDS: APIXABAN 5 MG TAB (ELIQUIS) PO SCH (21:35)
[2021-10-22] MEDS ORDERED: SODIUM CHLORIDE 0.9% INJ 10 ML SYR IV ONE (22:00)
[2021-10-22] MEDS: AMITRIPTYLINE 25MG TABLET PO SCH (22:27)
[2021-10-23] MEDS ORDERED: NS 1,000 ML IV ONE (00:25)
[2021-10-23] MEDS: METOPROLOL TART 50 MG TAB PO SCH ×4 (00:42→18:25)
[2021-10-23 06:54] LABS: BASO # 0.1 10^3/uL (0.0-0.2); BASO % 0.5 % (0.0-1.0); EOS # 0.1 10^3/uL (0.0-0.5); EOS % 1.1 % (0.0-3.0); HEMATOCRIT 45.4 % (42.0-52.0); HEMOGLOBIN 15.6 g/dl (13.5-17.5); LYMPH # 1.9 10^3/uL (1.5-5.0); LYMPH % 17.6 % (24.0-44.0); MEAN CORPUSCULAR HEMOGLOBIN 30.5 pg (27.0-33.0); MEAN CORPUSCULAR HGB CONC 34.4 g/dl (32.0-36.5); MEAN CORPUSCULAR VOLUME 88.7 fl (80.0-96.0); MONO # 1.1 10^3/uL (0.0-0.8); MONO % 10.3 % (2.0-8.0); NEUTROPHILS # 7.6 10^3/uL (1.5-8.5); NEUTROPHILS % 69.7 % (36.0-66.0); PLATELET COUNT, AUTOMATED 280 10^3/uL (150-450); RED BLOOD COUNT 5.12 10^6/uL (4.30-6.10); WHITE BLOOD COUNT 10.9 10^3/uL (4.0-10.0)
[2021-10-23 06:58] LABS: INR 1.04
[2021-10-23 06:59] LABS: PARTIAL THROMBOPLASTIN TIME 32.3 SECONDS (25.9-37.0)
[2021-10-23 07:27] LABS: ALBUMIN 3.8 GM/DL (3.2-5.2); ALT/SGPT 29 U/L (12-78); BILIRUBIN,DIRECT 0.3 MG/DL (0.0-0.2); BILIRUBIN,TOTAL 0.5 MG/DL (0.2-1.0); BLOOD UREA NITROGEN 26 MG/DL (7-18); CALCIUM LEVEL 9.9 MG/DL (8.5-10.1); CARBON DIOXIDE LEVEL 29 MEQ/L (21-32); CHLORIDE LEVEL 101 MEQ/L (98-107); CREATININE FOR GFR 1.24 MG/DL (0.70-1.30); GLOMERULAR FILTRATION RATE > 60.0 (>56); GLUCOSE, FASTING 99 MG/DL (70-100); POTASSIUM SERUM 4.2 MEQ/L (3.5-5.1); SODIUM LEVEL 136 MEQ/L (136-145); TOTAL PROTEIN 6.9 GM/DL (6.4-8.2)
[2021-10-23] MEDS ORDERED: AMIODARONE 200 MG TAB (PACERONE) PO SCH (09:00)
[2021-10-23] MEDS: AMIODARONE 200 MG TAB (PACERONE) PO SCH ×2 (09:31→22:28)
[2021-10-23] MEDS: PANTOPRAZOLE 40MG TAB (PROTONIX) PO SCH ×2 (09:31→22:28)
[2021-10-23] MEDS: GABAPENTIN 300 MG CAP PO SCH ×3 (09:31→22:28)
[2021-10-23] MEDS: APIXABAN 5 MG TAB (ELIQUIS) PO SCH ×2 (09:31→22:28)
[2021-10-23 11:36] VITALS: BP 134/64
[2021-10-23 15:51] VITALS: BP 126/85
[2021-10-23] MEDS ORDERED: CALCIUM CARBONATE 500 MG CHEW U/D PO PRN (18:30)
[2021-10-23 20:00] VITALS: BP 120/81
[2021-10-23] MEDS ORDERED: REMDESIVIR 100 MG in NS 250 ML IV SCH (20:00)
[2021-10-23] MEDS ORDERED: SODIUM CHLORIDE 0.9% INJ 10 ML SYR IV SCH (21:00)
[2021-10-23] MEDS: AMITRIPTYLINE 25MG TABLET PO SCH (22:28)
[2021-10-24] VITALS (7 sets, daily range): BP systolic 106–124; BP diastolic 72–92
[2021-10-24] MEDS: METOPROLOL TART 50 MG TAB PO SCH ×4 (00:09→18:19)
[2021-10-24] MEDS: BACLOFEN 10 MG TAB PO PRN ×2 (00:16→16:04)
[2021-10-24 06:13] LABS: BASO % 0.4 % (0.0-1.0); EOS # 0.1 10^3/uL (0.0-0.5); HEMATOCRIT 39.4 % (42.0-52.0); LYMPH # 1.6 10^3/uL (1.5-5.0); LYMPH % 17.7 % (24.0-44.0); MEAN CORPUSCULAR HEMOGLOBIN 30.1 pg (27.0-33.0); MEAN CORPUSCULAR HGB CONC 34.3 g/dl (32.0-36.5); MEAN CORPUSCULAR VOLUME 87.8 fl (80.0-96.0); MONO # 1.2 10^3/uL (0.0-0.8); MONO % 13.4 % (2.0-8.0); NEUTROPHILS % 66.8 % (36.0-66.0); PLATELET COUNT, AUTOMATED 225 10^3/uL (150-450); RED BLOOD COUNT 4.49 10^6/uL (4.30-6.10)
[2021-10-24 06:29] LABS: HEMOGLOBIN 13.5 g/dl (13.5-17.5)
[2021-10-24 06:55] LABS: BLOOD UREA NITROGEN 26 MG/DL (7-18); CALCIUM LEVEL 9.1 MG/DL (8.5-10.1); CARBON DIOXIDE LEVEL 26 MEQ/L (21-32); CHLORIDE LEVEL 106 MEQ/L (98-107); CREATININE FOR GFR 0.92 MG/DL (0.70-1.30); GLOMERULAR FILTRATION RATE > 60.0 (>56); GLUCOSE, FASTING 96 MG/DL (70-100); POTASSIUM SERUM 4.3 MEQ/L (3.5-5.1); SODIUM LEVEL 138 MEQ/L (136-145)
[2021-10-24] MEDS: APIXABAN 5 MG TAB (ELIQUIS) PO SCH ×2 (08:24→22:12)
[2021-10-24] MEDS: AMIODARONE 200 MG TAB (PACERONE) PO SCH ×2 (08:24→22:11)
[2021-10-24] MEDS: PANTOPRAZOLE 40MG TAB (PROTONIX) PO SCH ×2 (08:24→22:11)
[2021-10-24] MEDS: GABAPENTIN 300 MG CAP PO SCH ×3 (08:24→22:11)
[2021-10-24] MEDS: AMITRIPTYLINE 25MG TABLET PO SCH (22:12)
[2021-10-25] VITALS: BP 121/95
[2021-10-25] MEDS: METOPROLOL TART 50 MG TAB PO SCH ×3 (00:30→14:15)
[2021-10-25] MEDS: BACLOFEN 10 MG TAB PO PRN (00:30)
[2021-10-25 03:58] VITALS: BP 103/72
[2021-10-25 05:22] LABS: BASO % 0.4 % (0.0-1.0); EOS # 0.1 10^3/uL (0.0-0.5); EOS % 1.3 % (0.0-3.0); HEMATOCRIT 41.3 % (42.0-52.0); HEMOGLOBIN 13.8 g/dl (13.5-17.5); LYMPH # 1.9 10^3/uL (1.5-5.0); LYMPH % 20.6 % (24.0-44.0); MEAN CORPUSCULAR HEMOGLOBIN 30.1 pg (27.0-33.0); MEAN CORPUSCULAR HGB CONC 33.4 g/dl (32.0-36.5); MONO # 1.2 10^3/uL (0.0-0.8); MONO % 13.3 % (2.0-8.0); NEUTROPHILS % 63.8 % (36.0-66.0); PLATELET COUNT, AUTOMATED 253 10^3/uL (150-450); RED BLOOD COUNT 4.59 10^6/uL (4.30-6.10); WHITE BLOOD COUNT 9.3 10^3/uL (4.0-10.0)
[2021-10-25 05:47] VITALS: BP 137/89
[2021-10-25 05:55] LABS: BLOOD UREA NITROGEN 22 MG/DL (7-18); CALCIUM LEVEL 9.1 MG/DL (8.5-10.1); CARBON DIOXIDE LEVEL 26 MEQ/L (21-32); CHLORIDE LEVEL 107 MEQ/L (98-107); CREATININE FOR GFR 0.86 MG/DL (0.70-1.30); GLOMERULAR FILTRATION RATE > 60.0 (>56); GLUCOSE, FASTING 99 MG/DL (70-100); PHOSPHORUS LEVEL 3.8 MG/DL (2.5-4.9); POTASSIUM SERUM 4.5 MEQ/L (3.5-5.1); SODIUM LEVEL 139 MEQ/L (136-145)
[2021-10-25] MEDS ORDERED: ELIQ5TAB PO (06:22)
[2021-10-25 08:00] VITALS: BP 122/89
[2021-10-25] MEDS: AMIODARONE 200 MG TAB (PACERONE) PO SCH (09:54)
[2021-10-25] MEDS: GABAPENTIN 300 MG CAP PO SCH (09:54)
[2021-10-25] MEDS: APIXABAN 5 MG TAB (ELIQUIS) PO SCH (09:54)
[2021-10-25] MEDS: PANTOPRAZOLE 40MG TAB (PROTONIX) PO SCH (09:54)
[2021-10-25] MEDS ORDERED: ISOVUE-370 76% 100ML VIAL As Ordered ONE (12:15)
[2021-10-25] MEDS ORDERED: LOPR1TAB7 PO (13:38)
[2021-10-25] MEDS ORDERED: AMIO400T7 PO (13:38)
[2021-10-25 14:15] VITALS: BP 132/80
== END 2021-10-25 14:36 | disposition home or self-care (01) | DRG 308 ==
LOC: M ED 09:38 → M ED INP 13:44 → M PCU 10-23 11:45
PROVIDERS: ADMIT Internal Medicine Nephrology; ATTEND Internal Medicine
PROC: XW033E5 Introduction of Remdesivir Anti-infective into Peripheral Vein, Percutaneous Approach, New Technology Group 5 (ICD-10-PCS; principal; 2021-10-22)
DX: I48.92 Unspecified atrial flutter (principal); U07.1 COVID-19; I10 Essential (primary) hypertension; M54.9 Dorsalgia, unspecified; G89.29 Other chronic pain; G62.9 Polyneuropathy, unspecified; E66.9 Obesity, unspecified; F17.200 Nicotine dependence, unspecified, uncomplicated; I45.10 Unspecified right bundle-branch block; Z86.73 Personal history of transient ischemic attack (TIA), and cerebral infarction without residual deficits; Z79.899 Other long term (current) drug therapy; Z68.35 Body mass index [BMI] 35.0-35.9, adult

== ENCOUNTER 2022-03-31 13:37 | Emergency (ER) | payer MEDICARE, MEDICAID ==
[~2022-03-31] VITALS: Ht 182.9 cm; Wt 122.7 kg
[~2022-03-31 13:37] MED LIST changes: +ACET-683 PO; +AMIO400T7 PO; +AMIT75TA67 PO; +AMLO1TAB24 PO; +ELIQ5TAB PO; +LISI10TA22 PO; +LOPR1TAB7 PO; +PANT40TA29 PO; +POTA1TAB21 PO; +SUCR1TAB56 PO; +TORS100T PO
[2022-03-31] MEDS ORDERED: HYDR10CA2 PO (14:02)
[2022-03-31 14:11] LABS: BASO # 0.1 10^3/uL (0.0-0.2); BASO % 0.7 % (0.0-1.0); EOS # 0.1 10^3/uL (0.0-0.5); EOS % 0.9 % (0.0-3.0); HEMATOCRIT 42.8 % (42.0-52.0); HEMOGLOBIN 13.9 g/dl (13.5-17.5); LYMPH # 2.9 10^3/uL (1.5-5.0); LYMPH % 19.9 % (24.0-44.0); MEAN CORPUSCULAR HEMOGLOBIN 31.7 pg (27.0-33.0); MEAN CORPUSCULAR HGB CONC 32.5 g/dl (32.0-36.5); MEAN CORPUSCULAR VOLUME 97.5 fl (80.0-96.0); MONO # 1.4 10^3/uL (0.0-0.8); MONO % 9.4 % (2.0-8.0); NEUTROPHILS # 9.5 10^3/uL (1.5-8.5); NEUTROPHILS % 65.2 % (36.0-66.0); PLATELET COUNT, AUTOMATED 362 10^3/uL (150-450); RED BLOOD COUNT 4.39 10^6/uL (4.30-6.10); WHITE BLOOD COUNT 14.6 10^3/uL (4.0-10.0)
[2022-03-31 14:22] LABS: INR 1.02; PROTHROMBIN TIME 13.6 SECONDS (12.5-14.5)
[2022-03-31 14:23] LABS: PARTIAL THROMBOPLASTIN TIME 27.9 SECONDS (24.8-34.2)
[2022-03-31 14:37] LABS: LIPASE 44 U/L (12-53)
[2022-03-31 14:40] LABS: ALBUMIN 3.9 G/DL (3.2-5.2); ALKALINE PHOSPHATASE 52 U/L (46-116); ALT/SGPT 25 U/L (7.0-40); AST/SGOT 21 U/L (<34); BILIRUBIN,DIRECT < 0.1 MG/DL (<0.4); BILIRUBIN,TOTAL 0.3 MG/DL (0.3-1.2); BLOOD UREA NITROGEN 32 MG/DL (9-23); CALCIUM LEVEL 9.4 MG/DL (8.5-10.1); CARBON DIOXIDE LEVEL 33 MMOL/L (20-31); CHLORIDE LEVEL 103 MMOL/L (98-107); CK-MB VALUE MASS 1.3 NG/ML (<3.6); CPK CREATINE PHOSPHOKINASE 55 U/L (46-171); CREATININE FOR GFR 1.52 MG/DL (0.70-1.30); GLOMERULAR FILTRATION RATE 50.4 (>56); GLUCOSE, FASTING 71 MG/DL (60-100); MB/CK RELATIVE INDEX 2.36 (< OR =4); POTASSIUM SERUM 4.4 MMOL/L (3.5-5.1); SODIUM LEVEL 141 MMOL/L (136-145); TOTAL PROTEIN 6.9 G/DL (5.7-8.2)
[2022-03-31 15:45] VITALS: BP 102/68
[2022-03-31] MEDS ORDERED: ISOVUE-370 76% 100ML VIAL As Ordered ONE (16:22)
== END 2022-03-31 17:23 | disposition home or self-care (01) ==
LOC: M ED 13:37
DX: R07.89 Other chest pain (principal); R10.13 Epigastric pain; I48.91 Unspecified atrial fibrillation; R94.31 Abnormal electrocardiogram [ECG] [EKG]; I13.0 Hypertensive heart and chronic kidney disease with heart failure and stage 1 through stage 4 chronic kidney disease, or unspecified chronic kidney disease; I50.9 Heart failure, unspecified; E66.9 Obesity, unspecified; Z79.51 Long term (current) use of inhaled steroids; Z79.899 Other long term (current) drug therapy; Z79.01 Long term (current) use of anticoagulants
CPT/HCPCS: 36415; 71045; 74177; 80048; 80076; 82550; 82553; 83605; 83690; 84484; 85025; 85610; 85730; 93005; 93041; 94760; 99285; Q9967

== ENCOUNTER 2022-07-17 12:59 | Inpatient (IN) | payer MEDICARE, MEDICAID ==
[~2022-07-17] VITALS: Ht 182.9 cm; Wt 129.9 kg
[2022-07-17] VITALS (23 sets, daily range): BP systolic 83–131; BP diastolic 52–80
[~2022-07-17 12:59] MED LIST changes: +HYDR10CA2 PO
[2022-07-17] MEDS ORDERED: NS 3,690 ML in IV 1 EA IV ONE (13:40)
[2022-07-17] MEDS ORDERED: cefTRIAXone SOD 2 GM in D5W MINI-BAG PLUS 50 ML IV ONE (13:40)
[2022-07-17 13:53] LABS: VENOUS BASE EXCESS -4.7 (-2.0-2.0); VENOUS HCO3 22.6 MMOL/L (23.0-27.0); VENOUS O2 SATURATION 35.6 % (60.0-80.0); VENOUS PARTIAL PRESSURE CO2 50.9 mmHg (38.0-50.0); VENOUS PARTIAL PRESSURE O2 20.9 mmHg (30.0-50.0); VENOUS PH 7.266 UNITS (7.330-7.430); VENOUS STANDARD HCO3 19.3 MMOL/L; VENOUS TOTAL CO2 24.2 MMOL/L (24.0-28.0)
[2022-07-17 14:04] LABS: BASO % 0.3 % (0.0-1.0); EOS # 0.1 10^3/uL (0.0-0.5); EOS % 0.5 % (0.0-3.0); HEMATOCRIT 40.2 % (42.0-52.0); HEMOGLOBIN 13.5 g/dl (13.5-17.5); LYMPH # 2.1 10^3/uL (1.5-5.0); LYMPH % 15.9 % (24.0-44.0); MEAN CORPUSCULAR HEMOGLOBIN 30.9 pg (27.0-33.0); MEAN CORPUSCULAR HGB CONC 33.6 g/dl (32.0-36.5); MONO # 1.5 10^3/uL (0.0-0.8); MONO % 11.1 % (2.0-8.0); NEUTROPHILS # 9.4 10^3/uL (1.5-8.5); NEUTROPHILS % 70.7 % (36.0-66.0); PLATELET COUNT, AUTOMATED 459 10^3/uL (150-450); RED BLOOD COUNT 4.37 10^6/uL (4.30-6.10); WHITE BLOOD COUNT 13.2 10^3/uL (4.0-10.0)
[2022-07-17 14:16] LABS: INR 1.27; PROTHROMBIN TIME 16.2 SECONDS (12.5-14.5)
[2022-07-17 14:17] LABS: PARTIAL THROMBOPLASTIN TIME 30.9 SECONDS (24.8-34.2)
[2022-07-17 14:29] LABS: AMYLASE 55 U/L (30-118)
[2022-07-17 14:30] LABS: ALKALINE PHOSPHATASE 72 U/L (46-116); ALT/SGPT 53 U/L (7.0-40); AST/SGOT 29 U/L (<34); BILIRUBIN,DIRECT < 0.1 MG/DL (<0.4); BILIRUBIN,TOTAL 0.2 MG/DL (0.3-1.2); BLOOD UREA NITROGEN 59 MG/DL (9-23); CARBON DIOXIDE LEVEL 23 MMOL/L (20-31); CHLORIDE LEVEL 104 MMOL/L (98-107); CREATININE FOR GFR 2.94 MG/DL (0.70-1.30); GLOMERULAR FILTRATION RATE 23.5 (>56); GLUCOSE, FASTING 107 MG/DL (60-100); POTASSIUM SERUM 4.6 MMOL/L (3.5-5.1); SODIUM LEVEL 134 MMOL/L (136-145); TOTAL PROTEIN 5.8 G/DL (5.7-8.2)
[2022-07-17 14:36] LABS: RSV AMPLIFICATION NEGATIVE (NEGATIVE)
[2022-07-17] MEDS: IPRATROPIUM 0.5MG/ALBUTEROL 2.5MG INH SOL UD 3ML (DUONEB) NEB SCH ×2 (16:00→20:20)
[2022-07-17] MEDS ORDERED: METO100T5 PO (16:54)
[2022-07-17] MEDS ORDERED: AMIO200T49 PO (16:54)
[2022-07-17] MEDS ORDERED: ELIQ5TAB PO (16:54)
[2022-07-17] MEDS ORDERED: DICY20TA20 PO (16:57)
[2022-07-17] MEDS ORDERED: TREL1AER PO (16:57)
[2022-07-17] MEDS ORDERED: DIPH2.5T15 PO (16:57)
[2022-07-17] MEDS ORDERED: HOME MED LIST COMPLETE! XX SCH (17:00)
[2022-07-17 17:15] LABS: APPEARANCE, URINE CLEAR (CLEAR); BACTERIA, URINE AUTO NEGATIVE (NEGATIVE); BILIRUBIN, URINE AUTO NEGATIVE (NEGATIVE); BLOOD, URINE BLOOD NEGATIVE (NEGATIVE); COLOR, URINE YELLOW (YELLOW); GLUCOSE, URINE (UA) AUTO NEGATIVE (NEGATIVE); KETONE, URINE AUTO NEGATIVE (NEGATIVE); LEUKOCYTE ESTERASE, URINE AUTO NEGATIVE (NEGATIVE); MUCUS, URINE SMALL (NEGATIVE); NITRITE, URINE AUTO NEGATIVE (NEGATIVE); PROTEIN, URINE AUTO NEGATIVE (NEGATIVE); RBC, URINE AUTO 0 /HPF (0-3); SPECIFIC GRAVITY URINE AUTO 1.008 (1.002-1.035); SQUAMOUS EPITHELIAL CELL UR AU 0 /HPF (0-6); UROBILINOGEN, URINE AUTO 0.2 mg/dL (0.0-2.0); WBC, URINE AUTO 0 /HPF (0-3)
[2022-07-17] MEDS: methylPREDNISolone 40MG 1ML VIAL IV SCH ×2 (17:21→22:45)
[2022-07-17] MEDS: metroNIDAZOLE 500 MG in IV 1 EA IV SCH (17:21)
[2022-07-17] MEDS: NS 1,000 ML IV SCH (17:22)
[2022-07-17] MEDS: APIXABAN 5 MG TAB (ELIQUIS) PO SCH (21:20)
[2022-07-17] MEDS: AMITRIPTYLINE 25MG TABLET PO SCH (22:46)
[2022-07-18] VITALS (18 sets, daily range): BP systolic 99–136; BP diastolic 57–87
[2022-07-18] MEDS: metroNIDAZOLE 500 MG in IV 1 EA IV SCH ×3 (00:15→16:08)
[2022-07-18] MEDS: NS 1,000 ML IV SCH (02:52)
[2022-07-18] MEDS: methylPREDNISolone 40MG 1ML VIAL IV SCH ×2 (04:18→16:08)
[2022-07-18 05:20] LABS: HEMATOCRIT 35.9 % (42.0-52.0); HEMOGLOBIN 11.9 g/dl (13.5-17.5); MEAN CORPUSCULAR HEMOGLOBIN 30.7 pg (27.0-33.0); MEAN CORPUSCULAR HGB CONC 33.1 g/dl (32.0-36.5); MEAN CORPUSCULAR VOLUME 92.5 fl (80.0-96.0); PLATELET COUNT, AUTOMATED 377 10^3/uL (150-450); RED BLOOD COUNT 3.88 10^6/uL (4.30-6.10); WHITE BLOOD COUNT 9.5 10^3/uL (4.0-10.0)
[2022-07-18 05:56] LABS: ALBUMIN 2.5 G/DL (3.2-5.2); BILIRUBIN,TOTAL 0.2 MG/DL (0.3-1.2); CREATININE FOR GFR 1.57 MG/DL (0.70-1.30); GLOMERULAR FILTRATION RATE 48.5 (>56); POTASSIUM SERUM 4.3 MMOL/L (3.5-5.1); TOTAL PROTEIN 5.2 G/DL (5.7-8.2)
[2022-07-18] MEDS: IPRATROPIUM 0.5MG/ALBUTEROL 2.5MG INH SOL UD 3ML (DUONEB) NEB SCH ×4 (07:24→20:42)
[2022-07-18] MEDS: APIXABAN 5 MG TAB (ELIQUIS) PO SCH ×2 (08:02→21:54)
[2022-07-18] MEDS ORDERED: PANTOPRAZOLE 40MG VIAL IV SCH (09:00)
[2022-07-18] MEDS: AMIODARONE 200 MG TAB (PACERONE) PO SCH ×2 (09:13→21:55)
[2022-07-18] MEDS ORDERED: NS 1,000 ML IV SCH (09:20)
[2022-07-18] MEDS: cefTRIAXone SOD 1 GM in D5W MINI-BAG PLUS 50 ML IV SCH (14:08)
[2022-07-18] MEDS: AMITRIPTYLINE 25MG TABLET PO SCH (21:54)
[2022-07-19] MEDS: metroNIDAZOLE 500 MG in IV 1 EA IV SCH ×2 (01:40→09:41)
[2022-07-19] MEDS: methylPREDNISolone 40MG 1ML VIAL IV SCH (05:00)
[2022-07-19 06:00] VITALS: BP 112/68
[2022-07-19] MEDS: IPRATROPIUM 0.5MG/ALBUTEROL 2.5MG INH SOL UD 3ML (DUONEB) NEB SCH ×4 (08:18→19:36)
[2022-07-19] MEDS: AMIODARONE 200 MG TAB (PACERONE) PO SCH ×2 (09:41→20:55)
[2022-07-19] MEDS: APIXABAN 5 MG TAB (ELIQUIS) PO SCH ×2 (09:41→20:55)
[2022-07-19 11:30] VITALS: BP_SYST 116; BP_SYST 118; BP_SYST 98; BP_DIAS 67; BP_DIAS 68; BP_DIAS 71
[2022-07-19 11:49] LABS: HEMATOCRIT 33.9 % (42.0-52.0); HEMOGLOBIN 11.4 g/dl (13.5-17.5); MEAN CORPUSCULAR HEMOGLOBIN 31.5 pg (27.0-33.0); MEAN CORPUSCULAR HGB CONC 33.6 g/dl (32.0-36.5); MEAN CORPUSCULAR VOLUME 93.6 fl (80.0-96.0); PLATELET COUNT, AUTOMATED 419 10^3/uL (150-450); RED BLOOD COUNT 3.62 10^6/uL (4.30-6.10); WHITE BLOOD COUNT 19.8 10^3/uL (4.0-10.0)
[2022-07-19 12:15] LABS: BLOOD UREA NITROGEN 24 MG/DL (9-23); CALCIUM LEVEL 9.3 MG/DL (8.5-10.1); CARBON DIOXIDE LEVEL 18 MMOL/L (20-31); CHLORIDE LEVEL 110 MMOL/L (98-107); CREATININE FOR GFR 1.01 MG/DL (0.70-1.30); GLOMERULAR FILTRATION RATE > 60.0 (>56); GLUCOSE, FASTING 152 MG/DL (60-100); MAGNESIUM LEVEL 1.6 MG/DL (1.8-2.4); POTASSIUM SERUM 4.2 MMOL/L (3.5-5.1); SODIUM LEVEL 141 MMOL/L (136-145)
[2022-07-19] MEDS ORDERED: MAG SULF 1GM/100ML (MAG RUN) 1 GM in IV 1 EA IV ONE (14:00)
[2022-07-19] MEDS: cefTRIAXone SOD 1 GM in D5W MINI-BAG PLUS 50 ML IV SCH (14:23)
[2022-07-19] MEDS: SODIUM BICARBONATE 325 MG TAB PO SCH ×2 (14:27→20:54)
[2022-07-19] MEDS: MAGNESIUM OXIDE 400MG TAB (MAG-OX) PO SCH ×2 (14:27→20:55)
[2022-07-19 14:36] VITALS: BP_SYST 114; BP_SYST 117; BP_SYST 122; BP_DIAS 67; BP_DIAS 77; BP_DIAS 80
[2022-07-19] MEDS ORDERED: TORS20TA2 PO (15:07)
[2022-07-19] MEDS ORDERED: PRED20TA PO (15:16)
[2022-07-19] MEDS ORDERED: ALBU8.5H INH (15:16)
[2022-07-19] MEDS ORDERED: AMOX875T2 PO (15:17)
[2022-07-19] MEDS ORDERED: METO25TA PO (15:18)
[2022-07-19] MEDS ORDERED: SODIUM BICARBONATE IV SCH (17:00)
[2022-07-19] MEDS ORDERED: D5W IV SCH (17:00)
[2022-07-19 19:43] LABS: BLOOD UREA NITROGEN 22 MG/DL (9-23); CALCIUM LEVEL 8.7 MG/DL (8.5-10.1); CARBON DIOXIDE LEVEL 21 MMOL/L (20-31); CHLORIDE LEVEL 107 MMOL/L (98-107); CREATININE FOR GFR 1.08 MG/DL (0.70-1.30); GLOMERULAR FILTRATION RATE > 60.0 (>56); GLUCOSE, FASTING 197 MG/DL (60-100); MAGNESIUM LEVEL 1.9 MG/DL (1.8-2.4); POTASSIUM SERUM 4.2 MMOL/L (3.5-5.1); SODIUM LEVEL 140 MMOL/L (136-145)
[2022-07-19] MEDS: AMITRIPTYLINE 25MG TABLET PO SCH (21:00)
[2022-07-19 21:10] VITALS: BP 117/85
[2022-07-20 06:00] VITALS: BP 109/74
[2022-07-20 06:28] LABS: BASO # 0.1 10^3/uL (0.0-0.2); BASO % 0.3 % (0.0-1.0); EOS % 0.1 % (0.0-3.0); HEMATOCRIT 32.1 % (42.0-52.0); HEMOGLOBIN 10.6 g/dl (13.5-17.5); LYMPH # 2.4 10^3/uL (1.5-5.0); LYMPH % 13.6 % (24.0-44.0); MEAN CORPUSCULAR HEMOGLOBIN 30.6 pg (27.0-33.0); MEAN CORPUSCULAR VOLUME 92.8 fl (80.0-96.0); MONO # 1.4 10^3/uL (0.0-0.8); NEUTROPHILS # 13.4 10^3/uL (1.5-8.5); NEUTROPHILS % 75.3 % (36.0-66.0); PLATELET COUNT, AUTOMATED 398 10^3/uL (150-450); RED BLOOD COUNT 3.46 10^6/uL (4.30-6.10); WHITE BLOOD COUNT 17.8 10^3/uL (4.0-10.0)
[2022-07-20 06:51] LABS: BLOOD UREA NITROGEN 20 MG/DL (9-23); CALCIUM LEVEL 8.8 MG/DL (8.5-10.1); CARBON DIOXIDE LEVEL 25 MMOL/L (20-31); CHLORIDE LEVEL 110 MMOL/L (98-107); GLOMERULAR FILTRATION RATE > 60.0 (>56); GLUCOSE, FASTING 97 MG/DL (60-100); POTASSIUM SERUM 3.7 MMOL/L (3.5-5.1); SODIUM LEVEL 143 MMOL/L (136-145)
[2022-07-20] MEDS: IPRATROPIUM 0.5MG/ALBUTEROL 2.5MG INH SOL UD 3ML (DUONEB) NEB SCH (07:26)
[2022-07-20] MEDS: SODIUM BICARBONATE 325 MG TAB PO SCH (08:00)
[2022-07-20] MEDS: AMIODARONE 200 MG TAB (PACERONE) PO SCH (08:00)
[2022-07-20] MEDS: APIXABAN 5 MG TAB (ELIQUIS) PO SCH (08:00)
[2022-07-20] MEDS: MAGNESIUM OXIDE 400MG TAB (MAG-OX) PO SCH (08:00)
[2022-07-20] MEDS ORDERED: DIGOXIN INJ 0.5 MG/2 ML AMP IV STA (09:12)
== END 2022-07-20 10:41 | disposition home health service (06) | DRG 371 ==
LOC: M ED 12:59 → M ED INP 15:53 → ENRESERV 16:35 → M ICU 17:55 → M MSPAV 07-18 14:25
PROVIDERS: ADMIT Internal Medicine; ATTEND General Practice
PROC: B246ZZZ Ultrasonography of Right and Left Heart (ICD-10-PCS; principal; 2022-07-18)
DX: A04.9 Bacterial intestinal infection, unspecified (principal); R57.1 Hypovolemic shock; F32.1 Major depressive disorder, single episode, moderate; J44.1 Chronic obstructive pulmonary disease with (acute) exacerbation; N17.9 Acute kidney failure, unspecified; E87.20 Acidosis, unspecified; I48.20 Chronic atrial fibrillation, unspecified; I50.32 Chronic diastolic (congestive) heart failure; I13.0 Hypertensive heart and chronic kidney disease with heart failure and stage 1 through stage 4 chronic kidney disease, or unspecified chronic kidney disease; I95.9 Hypotension, unspecified; K21.9 Gastro-esophageal reflux disease without esophagitis; R42 Dizziness and giddiness; M54.2 Cervicalgia; I27.20 Pulmonary hypertension, unspecified; F17.200 Nicotine dependence, unspecified, uncomplicated; N18.9 Chronic kidney disease, unspecified; K76.0 Fatty (change of) liver, not elsewhere classified; E66.9 Obesity, unspecified; E86.0 Dehydration; J45.20 Mild intermittent asthma, uncomplicated; E78.5 Hyperlipidemia, unspecified; Z79.01 Long term (current) use of anticoagulants; Z79.1 Long term (current) use of non-steroidal anti-inflammatories (NSAID); Z79.899 Other long term (current) drug therapy; Z68.38 Body mass index [BMI] 38.0-38.9, adult

== ENCOUNTER → 2022-08-23 | Outpatient (CLI) | payer MEDICARE, MEDICAID ==
[~2022-08-23] MED LIST changes: +ALBU8.5H INH; +AMIO200T49 PO; +AMOX875T2 PO; +DICY20TA20 PO; +DIPH2.5T15 PO; +FLUO20CA22 PO; +METO100T5 PO; +METO25TA PO; +OMEP-173 PO; +PRED20TA PO; +TORS20TA2 PO; +TREL1AER PO
[2022-08-23 10:33] LABS: HEMATOCRIT 44.1 % (42.0-52.0); HEMOGLOBIN 14.8 g/dl (13.5-17.5); MEAN CORPUSCULAR HEMOGLOBIN 30.3 pg (27.0-33.0); MEAN CORPUSCULAR HGB CONC 33.6 g/dl (32.0-36.5); MEAN CORPUSCULAR VOLUME 90.2 fl (80.0-96.0); PLATELET COUNT, AUTOMATED 377 10^3/uL (150-450); RED BLOOD COUNT 4.89 10^6/uL (4.30-6.10); WHITE BLOOD COUNT 10.6 10^3/uL (4.0-10.0)
[2022-08-23 10:55] LABS: CALCIUM LEVEL 10.2 MG/DL (8.5-10.1); CREATININE FOR GFR 1.64 MG/DL (0.70-1.30); GLOMERULAR FILTRATION RATE 46.2 (>56); POTASSIUM SERUM 3.3 MMOL/L (3.5-5.1)
== END ==
LOC: M LAB 09:47
PROVIDERS: ATTEND Nurse Practitioner Family
DX: I48.92 Unspecified atrial flutter (principal)

== ENCOUNTER 2022-08-30 06:20 | Day surgery (SDC) | payer MEDICARE, MEDICAID ==
[~2022-08-30] VITALS: Ht 180.3 cm; Wt 119.7 kg
[2022-08-30] MEDS ORDERED: LIDOCAINE 2% 100MG/5ML SDV (FOR ANES.) As Ordered ONE (06:58)
[2022-08-30] MEDS ORDERED: propofoL 200 MG/20 ML VIAL As Ordered ONE (06:58)
[2022-08-30 08:51] VITALS: BP 108/73; TEMP 96.9; O2SAT 96
[2022-08-30] MEDS ORDERED: ONDANSETRON 4MG 2ML VIAL IV PRN (08:55)
== END 2022-08-30 08:58 | disposition home or self-care (01) ==
LOC: M SDC 06:20
PROVIDERS: ATTEND Internal Medicine Cardiovascular Disease
DX: I48.92 Unspecified atrial flutter (principal); I10 Essential (primary) hypertension; R06.00 Dyspnea, unspecified; E66.9 Obesity, unspecified; Z68.36 Body mass index [BMI] 36.0-36.9, adult; F41.9 Anxiety disorder, unspecified; F32.A Depression, unspecified; M19.90 Unspecified osteoarthritis, unspecified site; K21.9 Gastro-esophageal reflux disease without esophagitis; J44.9 Chronic obstructive pulmonary disease, unspecified; F17.219 Nicotine dependence, cigarettes, with unspecified nicotine-induced disorders; Z79.899 Other long term (current) drug therapy; Z79.01 Long term (current) use of anticoagulants; Z79.51 Long term (current) use of inhaled steroids

== ENCOUNTER 2022-11-12 13:08 | Day surgery (SDC) | payer MEDICARE, MEDICAID ==
[~2022-11-12] VITALS: Ht 180.3 cm; Wt 120.2 kg
[~2022-11-12 13:08] MED LIST changes: +AMIO400T2 PO; -AMIO400T7 PO; +NS 1,000 ML IV ONE; +OMEP40CA5 PO
[2022-11-12] MEDS ORDERED: fentaNYL 100 MCG/2 ML INJECTION As Ordered ONE (14:03)
[2022-11-12 15:00] VITALS: BP 129/93; O2SAT 96
== END 2022-11-12 15:15 | disposition home or self-care (01) ==
LOC: M OPP 13:08
PROVIDERS: ATTEND Internal Medicine Gastroenterology
DX: D50.9 Iron deficiency anemia, unspecified (principal); K64.0 First degree hemorrhoids; K64.4 Residual hemorrhoidal skin tags; K22.70 Barrett's esophagus without dysplasia; K22.89 Other specified disease of esophagus; K44.9 Diaphragmatic hernia without obstruction or gangrene; I48.91 Unspecified atrial fibrillation; I10 Essential (primary) hypertension; E78.5 Hyperlipidemia, unspecified; F41.9 Anxiety disorder, unspecified; F32.A Depression, unspecified; F43.10 Post-traumatic stress disorder, unspecified; F17.210 Nicotine dependence, cigarettes, uncomplicated; Z79.01 Long term (current) use of anticoagulants; Z79.899 Other long term (current) drug therapy
CPT/HCPCS: 43239; 45378; 88305; J3010

== ENCOUNTER → 2023-01-01 | Outpatient (CLI) | payer MEDICARE, MEDICAID ==
[~2023-01-01] MED LIST changes: -NS 1,000 ML IV ONE
[2023-01-01 12:23] LABS: HEMATOCRIT 41.2 % (42.0-52.0); HEMOGLOBIN 13.8 g/dl (13.5-17.5); MEAN CORPUSCULAR HEMOGLOBIN 29.8 pg (27.0-33.0); MEAN CORPUSCULAR HGB CONC 33.5 g/dl (32.0-36.5); PLATELET COUNT, AUTOMATED 338 10^3/uL (150-450); RED BLOOD COUNT 4.63 10^6/uL (4.30-6.10); WHITE BLOOD COUNT 11.8 10^3/uL (4.0-10.0)
[2023-01-01 12:43] LABS: ALBUMIN 3.6 G/DL (3.2-5.2); BILIRUBIN,TOTAL 0.2 MG/DL (0.3-1.2); CALCIUM LEVEL 9.2 MG/DL (8.5-10.1); CREATININE FOR GFR 1.73 MG/DL (0.70-1.30); GLOMERULAR FILTRATION RATE 43.3 (>56); POTASSIUM SERUM 3.2 MMOL/L (3.5-5.1); TOTAL PROTEIN 6.8 G/DL (5.7-8.2)
[2023-01-01 12:45] LABS: THYROID STIMULATING HORMONE 8.689 uIU/ML (0.55-4.78)
== END ==
LOC: M LAB 11:45
PROVIDERS: ATTEND Nurse Practitioner Family
DX: Z79.899 Other long term (current) drug therapy (principal); R06.09 Other forms of dyspnea

== ENCOUNTER → 2023-05-20 | Outpatient (CLI) | payer MEDICARE, MEDICAID | LOC: M PLAIMG 10:09 | PROVIDERS: ATTEND Pain Medicine Interventional Pain Medicine | DX: M54.12 Radiculopathy, cervical region (principal) ==

== ENCOUNTER 2023-06-10 03:52 | Day surgery (SDC) | payer MEDICARE, MEDICAID ==
[2023-06-10] VITALS (9 sets, daily range): BP systolic 90–163; BP diastolic 58–101; TEMP 97.3–98.2; O2SAT 87–96
[~2023-06-10] VITALS: Ht 180.3 cm; Wt 125.2 kg
[~2023-06-10 03:52] MED LIST changes: +DIPH1TAB81 PO; -DIPH2.5T15 PO
[2023-06-10 04:29] LABS: BASO # 0.1 10^3/uL (0.0-0.2); BASO % 0.3 % (0.0-1.0); EOS # 0.3 10^3/uL (0.0-0.5); EOS % 1.3 % (0.0-3.0); HEMATOCRIT 40.1 % (42.0-52.0); HEMOGLOBIN 13.6 g/dl (13.5-17.5); LYMPH % 10.2 % (24.0-44.0); MEAN CORPUSCULAR HEMOGLOBIN 29.8 pg (27.0-33.0); MEAN CORPUSCULAR HGB CONC 33.9 g/dl (32.0-36.5); MEAN CORPUSCULAR VOLUME 87.7 fl (80.0-96.0); MONO # 1.4 10^3/uL (0.0-0.8); MONO % 7.4 % (2.0-8.0); NEUTROPHILS # 15.5 10^3/uL (1.5-8.5); NEUTROPHILS % 80.1 % (36.0-66.0); PLATELET COUNT, AUTOMATED 295 10^3/uL (150-450); RED BLOOD COUNT 4.57 10^6/uL (4.30-6.10); WHITE BLOOD COUNT 19.4 10^3/uL (4.0-10.0)
[2023-06-10 04:56] LABS: LIPASE 37 U/L (12-53)
[2023-06-10 04:58] LABS: ALBUMIN 3.6 G/DL (3.2-5.2); ALKALINE PHOSPHATASE 88 U/L (46-116); ALT/SGPT 22 U/L (7.0-40); AST/SGOT 18 U/L (<34); BILIRUBIN,DIRECT < 0.1 MG/DL (<0.4); BILIRUBIN,TOTAL 0.3 MG/DL (0.3-1.2); BLOOD UREA NITROGEN 22 MG/DL (9-23); CALCIUM LEVEL 8.6 MG/DL (8.5-10.1); CARBON DIOXIDE LEVEL 28 MMOL/L (20-31); CHLORIDE LEVEL 102 MMOL/L (98-107); CK-MB VALUE MASS 1.1 NG/ML (<3.6); CPK CREATINE PHOSPHOKINASE 117 U/L (46-171); CREATININE FOR GFR 1.36 MG/DL (0.70-1.30); GLOMERULAR FILTRATION RATE 57.1 (>56); GLUCOSE, FASTING 104 MG/DL (60-100); MB/CK RELATIVE INDEX 0.94 (< OR =4); SODIUM LEVEL 138 MMOL/L (136-145); TOTAL PROTEIN 6.8 G/DL (5.7-8.2)
[2023-06-10] MEDS: NS 1,000 ML IV ONE (07:15)
[2023-06-10] MEDS: ONDANSETRON 4MG 2ML VIAL IV ONE (07:15)
[2023-06-10] MEDS: MORPHINE 4 MG/ML 1ML VIAL IV ONE (07:15)
[2023-06-10] MEDS ORDERED: ISOVUE-370 76% 100ML VIAL As Ordered ONE (07:26)
[2023-06-10] MEDS: PIPERACILLIN/TAZOBACTAM SOD 4.5 GM in D5W MINI-BAG PLUS 50 ML IV ONE (08:20)
[2023-06-10] MEDS ORDERED: MED REC IN PROGRESS XX SCH (08:55)
[2023-06-10 08:59] LABS: INR 1.05; PROTHROMBIN TIME 13.4 SECONDS (12.5-14.5)
[2023-06-10] MEDS: HYDROMORPHONE HCL 0.5 MG/ 0.5 ML SYRINGE IV ONE ×2 (09:40→12:50)
[2023-06-10] MEDS: SIMETHICONE 80MG CHEW TAB PO ONE (10:15)
[2023-06-10] MEDS ORDERED: POTA-136 PO (11:31)
[2023-06-10] MEDS ORDERED: SENN1TAB85 PO (11:31)
[2023-06-10] MEDS ORDERED: VENTAER INH (11:31)
[2023-06-10] MEDS ORDERED: HOME MED LIST COMPLETE! XX SCH (11:35)
[2023-06-10] MEDS ORDERED: propofoL 200 MG/20 ML VIAL As Ordered ONE (13:57)
[2023-06-10] MEDS ORDERED: LIDOCAINE 2% 100MG/5ML SDV (FOR ANES.) As Ordered ONE (13:57)
[2023-06-10] MEDS ORDERED: ONDANSETRON 4MG 2ML VIAL As Ordered ONE (13:57)
[2023-06-10] MEDS ORDERED: ACETAMINOPHEN 1000MG 100ML IV BAG As Ordered ONE (13:57)
[2023-06-10] MEDS ORDERED: MIDAZOLAM INJ 2MG/2ML VIAL As Ordered ONE (14:01)
[2023-06-10] MEDS ORDERED: fentaNYL 100 MCG/2 ML INJECTION As Ordered ONE (14:01)
[2023-06-10] MEDS ORDERED: METOPROLOL 5 MG/5 ML VIAL As Ordered ONE (14:39)
[2023-06-10] MEDS: ZOSYN 3.375GM VIAL As Ordered ONE (14:55)
[2023-06-10] MEDS: PIPERACILLIN/TAZOBACTAM SOD 3.375 GM in D5W MINI-BAG PLUS 50 ML IV SCH ×2 (14:55→20:07)
[2023-06-10] MEDS ORDERED: ROCURONIUM BROMIDE 50MG/5ML VIAL As Ordered ONE (15:00)
[2023-06-10] MEDS ORDERED: SUGAMMADEX SODIUM 500 MG/5 ML VIAL (BRIDION) As Ordered ONE (15:00)
[2023-06-10] MEDS: LR 1,000 ML IV SCH (15:40)
[2023-06-10] MEDS ORDERED: fentaNYL 100 MCG/2 ML INJECTION IV PRN ×2 (15:40→15:55)
[2023-06-10] MEDS ORDERED: ONDANSETRON 4MG 2ML VIAL IV PRN ×3 (15:40→16:00)
[2023-06-10] MEDS ORDERED: HYDROMORPHONE HCL 0.5 MG/ 0.5 ML SYRINGE IV PRN ×2 (15:40→15:55)
[2023-06-10] MEDS: oxyCODONE 5MG TAB PO PRN (15:57)
[2023-06-10] MEDS ORDERED: MORPHINE 4 MG/ML 1ML VIAL IV PRN (16:00)
[2023-06-10] MEDS ORDERED: IPRATROPIUM 0.5MG/ALBUTEROL 2.5MG INH SOL UD 3ML (DUONEB) NEB PRN (16:00)
[2023-06-10] MEDS ORDERED: MORPHINE 2 MG/ML 1ML VIAL IV PRN (16:00)
[2023-06-10] MEDS ORDERED: SENOKOT S TAB PO PRN (16:05)
[2023-06-10] MEDS ORDERED: ALBUTEROL 90 MCG/ACT 8GM HFA INHALER INH PRN (16:05)
[2023-06-10] MEDS: NS 1,000 ML IV SCH (16:46)
[2023-06-10] MEDS: MORPHINE 2 MG/ML 1ML VIAL IV PRN (18:12)
[2023-06-10] MEDS: IPRATROPIUM 0.5MG/ALBUTEROL 2.5MG INH SOL UD 3ML (DUONEB) NEB SCH (19:29)
[2023-06-10] MEDS: KETOROLAC 30 MG/ML 1ML VIAL IV PRN (19:52)
[2023-06-10] MEDS: POTASSIUM CHLORIDE 10MEQ SR TABLET PO SCH (19:53)
[2023-06-10] MEDS: METOPROLOL TARTRATE 100MG TAB PO SCH (19:58)
[2023-06-11] VITALS (7 sets, daily range): BP systolic 105–120; BP diastolic 61–88; TEMP 97.5–97.7; O2SAT 80–96
[2023-06-11 06:42] LABS: MEAN CORPUSCULAR HEMOGLOBIN 30.1 pg (27.0-33.0); MEAN CORPUSCULAR HGB CONC 33.1 g/dl (32.0-36.5); MEAN CORPUSCULAR VOLUME 90.7 fl (80.0-96.0); PLATELET COUNT, AUTOMATED 251 10^3/uL (150-450); RED BLOOD COUNT 3.76 10^6/uL (4.30-6.10); WHITE BLOOD COUNT 19.6 10^3/uL (4.0-10.0)
[2023-06-11 06:51] LABS: HEMATOCRIT 34.1 % (42.0-52.0); HEMOGLOBIN 11.3 g/dl (13.5-17.5)
[2023-06-11 06:56] LABS: CALCIUM LEVEL 8.6 MG/DL (8.5-10.1); CREATININE FOR GFR 1.38 MG/DL (0.70-1.30); GLOMERULAR FILTRATION RATE 56.1 (>56); POTASSIUM SERUM 3.4 MMOL/L (3.5-5.1)
[2023-06-11] MEDS: PANTOPRAZOLE 40MG VIAL IV SCH (08:22)
[2023-06-11] MEDS: KCL 10MEQ/100ML SWI (KRUN) 10 MEQ in IV 1 EA IV SCH (08:22)
[2023-06-11] MEDS: TORSEMIDE 100 MG TAB PO SCH (08:28)
[2023-06-11] MEDS: METOPROLOL TART 50 MG TAB PO ONE (09:12)
[2023-06-11] MEDS: POTASSIUM CHLORIDE 10MEQ SR TABLET PO ONE (09:57)
[2023-06-12] MEDS ORDERED: AMIODARONE 200 MG TAB (PACERONE) PO SCH (09:00)
== END 2023-06-11 10:37 | disposition home or self-care (01) ==
LOC: M ED 03:52 → M SDC 03:53 → M ED INP 16:07 → UNDOADMIN 16:07 → M ED INP 16:32 → M MSPAV 16:32 → M SDC 06-11 10:37 → UNDODISIN 06-11 10:37
PROVIDERS: ATTEND Surgery
DX: K35.30 Acute appendicitis with localized peritonitis, without perforation or gangrene (principal); I50.30 Unspecified diastolic (congestive) heart failure; Z86.73 Personal history of transient ischemic attack (TIA), and cerebral infarction without residual deficits; I13.0 Hypertensive heart and chronic kidney disease with heart failure and stage 1 through stage 4 chronic kidney disease, or unspecified chronic kidney disease; I48.91 Unspecified atrial fibrillation; Z98.890 Other specified postprocedural states; I45.10 Unspecified right bundle-branch block; E66.9 Obesity, unspecified; M54.9 Dorsalgia, unspecified; G89.29 Other chronic pain; Z96.82 Presence of neurostimulator; J44.9 Chronic obstructive pulmonary disease, unspecified; G62.9 Polyneuropathy, unspecified; N18.30 Chronic kidney disease, stage 3 unspecified; F17.210 Nicotine dependence, cigarettes, uncomplicated; Z79.899 Other long term (current) drug therapy; Z79.01 Long term (current) use of anticoagulants; Z79.51 Long term (current) use of inhaled steroids
CPT/HCPCS: 36415; 44970; 71045; 74018; 74177; 80048; 80076; 82550; 82553; 83605; 83690; 84484; 85025; 85027; 85610; 85730; 86850; 86900; 86901; 87040; 88304; 93005; 93041; 94640; 96361; 96365; 96366; 96367; 96375; 96376; 99285; C9113; J0131; J0665; J1100; J1170; J1885; J2250; J2405; J2543; J3010; Q9967

== ENCOUNTER → 2023-08-06 | Outpatient (CLI) | payer MEDICARE, MEDICAID ==
[~2023-08-06] MED LIST changes: +FLUO-365 PO; -FLUO20CA22 PO; +POTA-136 PO; +SENN1TAB85 PO; +VENTAER INH
[2023-08-06 11:20] LABS: HEMATOCRIT 43.1 % (42.0-52.0); HEMOGLOBIN 14.8 g/dl (13.5-17.5); MEAN CORPUSCULAR HEMOGLOBIN 29.6 pg (27.0-33.0); MEAN CORPUSCULAR HGB CONC 34.3 g/dl (32.0-36.5); MEAN CORPUSCULAR VOLUME 86.2 fl (80.0-96.0); PLATELET COUNT, AUTOMATED 370 10^3/uL (150-450); WHITE BLOOD COUNT 11.3 10^3/uL (4.0-10.0)
[2023-08-06 11:38] LABS: CALCIUM LEVEL 9.6 MG/DL (8.5-10.1); CREATININE FOR GFR 1.82 MG/DL (0.70-1.30); GLOMERULAR FILTRATION RATE 40.8 (>56); POTASSIUM SERUM 3.4 MMOL/L (3.5-5.1)
== END ==
LOC: M LAB 09:14
PROVIDERS: ATTEND Nurse Practitioner Family
DX: I48.92 Unspecified atrial flutter (principal)

== ENCOUNTER → 2023-09-26 | Outpatient (CLI) | payer MEDICARE, MEDICAID ==
[2023-09-26 09:38] LABS: CALCIUM LEVEL 9.4 MG/DL (8.5-10.1); CREATININE FOR GFR 1.59 MG/DL (0.70-1.30); GLOMERULAR FILTRATION RATE 47.7 (>56)
== END ==
LOC: M LAB 08:27
PROVIDERS: ATTEND Nurse Practitioner Family
DX: N28.9 Disorder of kidney and ureter, unspecified (principal)

== ENCOUNTER → 2023-11-27 | Outpatient (CLI) | payer MEDICARE, MEDICAID ==
[~2023-11-27] MED LIST changes: +GABA-1490 PO; -GABA600T4 PO
== END ==
LOC: M RAD 10:46
PROVIDERS: ATTEND Family Medicine
DX: J44.9 Chronic obstructive pulmonary disease, unspecified (principal)

== ENCOUNTER → 2024-09-22 | Outpatient (CLI) | payer MEDICARE, MEDICAID ==
[~2024-09-22] MED LIST changes: -AMIO200T49 PO; +AMIO200T54 PO; +LISI40TA10 PO; -LISI40TA4 PO
[2024-09-22 10:29] LABS: PLATELET COUNT, AUTOMATED 245 10^3/uL (150-450)
[2024-09-22 11:04] LABS: CALCIUM LEVEL 8.9 MG/DL (8.3-10.6); CARBON DIOXIDE LEVEL 28.0 MMOL/L (20-31); CHLORIDE LEVEL 105.0 MMOL/L (98-107); CREATININE FOR GFR 1.19 MG/DL (0.70-1.30); GLOMERULAR FILTRATION RATE 69.9 (>49); POTASSIUM SERUM 4.7 MMOL/L (3.5-5.1); SODIUM LEVEL 143.0 MMOL/L (136-145)
== END ==
LOC: M LAB 09:42
PROVIDERS: ATTEND Nurse Practitioner Family
DX: I48.92 Unspecified atrial flutter (principal); N28.9 Disorder of kidney and ureter, unspecified; R06.09 Other forms of dyspnea

== ENCOUNTER → 2024-10-20 | Outpatient (CLI) | payer MEDICARE, MEDICAID | LOC: M RAD 16:44 | PROVIDERS: ATTEND Physician Assistant | DX: F17.210 Nicotine dependence, cigarettes, uncomplicated (principal) ==

== ENCOUNTER → 2024-11-29 | Outpatient (CLI) | payer MEDICARE, MEDICAID | LOC: M SLEEP 20:00 | PROVIDERS: ATTEND Physician Assistant | DX: R40.0 Somnolence (principal) ==

== ENCOUNTER → 2025-01-14 | Outpatient (CLI) | payer MEDICARE, MEDICAID ==
[~2025-01-14] MED LIST changes: +AMIT75TA PO; +FLUT1BLS8
== END ==
LOC: M SLEEP 20:00
PROVIDERS: ATTEND Physician Assistant
DX: G47.33 Obstructive sleep apnea (adult) (pediatric) (principal)